=== PATIENT | male | born 1940 | race Caucasian/White ===

== ENCOUNTER → 2018-07-29 | Outpatient (CLI) | payer MEDICARE, BC ==
[2018-07-29 12:10] LABS: Anisocytosis Slight; HCT 26.6 % (39.0-53.0); HGB 7.8 gm/dL (13.0-17.5); Hypochromasia Marked; MCH 32.9 pg (25.0-35.0); MCHC 29.3 g/dL (31.0-37.0); MCV 112.1 fL (80.0-100.0); Macrocytosis Marked; Mean Platelet Volume 7.6; Platelet Count 172 k/uL (150-450); RBC 2.37 m/uL (4.30-5.90); RDW 16.9 % (11.5-15.5); WBC 4.4 k/uL (3.8-10.6)
[2018-07-29 12:18] LABS: Calcium 9.3 mg/dL (8.4-10.2); Potassium 4.9 mmol/L (3.5-5.1)
== END ==
LOC: LABWHC1 11:25
PROVIDERS: ATTEND Internal Medicine Interventional Cardiology
DX: I25.10 Atherosclerotic heart disease of native coronary artery without angina pectoris (principal); E11.9 Type 2 diabetes mellitus without complications; D64.9 Anemia, unspecified
CPT/HCPCS: 36415; 80048; 85027

== ENCOUNTER 2018-08-04 04:04 | Inpatient (IN) | payer BC, MEDICARE ==
[2018-08-04] MEDS ORDERED: SODIUM CHLORIDE 0.9% 500 ML IV STA (04:23)
--- NOTE | 2018-08-04 04:24 | ED ---
General Adult HPI - General Chief complaint: Urogenital Stated complaint: URINATING BLOOD Time Seen by Provider: 08/04/18 04:22 Source: patient Mode of arrival: ambulatory Limitations: no limitations - History of Present Illness Initial comments: Cameron is a 78-year-old male who presents the emergency department for evaluation of 3 hours of gross hematuria. Patient reports that one day in June he had a single day of passing blood clots, however that resolved the next day so he never sought any care. Patient does note that he has recently been diagnosed with anemia and was noted to have a hemoglobin of only 7.8. Patient reports he woke at 1:30 this morning to use the restroom and noted that he had gross hematuria with clots. This has persisted for approximately 3 hours which prompted his to bring him to the ER for evaluation. Patient reports that he is experiencing urinary frequency and some discomfort with urination. No hesitancy. No history of urinary tract infections in the past. He is circumcised. He is not experience any testicular pain or swelling. - Related Data Home Medications Medication Instructions Recorded Confirmed Aspirin 81 mg PO HS 01/25/15 08/04/18 Atenolol [Tenormin] 50 mg PO HS 01/25/15 08/04/18 Atorvastatin [Lipitor] 20 mg PO HS 01/25/15 08/04/18 Clopidogrel [Plavix] 75 mg PO DAILY 01/25/15 08/04/18 Furosemide [Lasix] 40 mg PO QAM 01/25/15 08/04/18 Isosorbide Mononitrate ER [Imdur] 60 mg PO QAM 01/25/15 08/04/18 Losartan [Cozaar] 50 mg PO QAM 01/25/15 08/04/18 Nitroglycerin Sl Tabs [Nitrostat] 0.4 mg SL Q5M PRN 01/25/15 08/04/18 Spironolactone [Aldactone] 50 mg PO QAM 01/25/15 08/04/18 metFORMIN HCL [Glucophage] 1,000 mg PO HS 01/25/15 08/04/18 Albuterol Inhaler [Ventolin Hfa 1 - 2 puff INHALATION RT-Q6H PRN 08/04/18 Inhaler] Budesonide [Pulmicort] 0.5 mg INHALATION RT-BID 08/04/18 08/04/18 Cholecalciferol (Vitamin D3) 2,000 unit PO HS 08/04/18 08/04/18 [Vitamin D3] Cyanocobalamin (Vitamin B-12) 1,000 mcg PO DAILY 08/04/18 08/04/18 [Vitamin B-12] Ferrous Sulfate [Feosol] 325 mg PO DAILY 08/04/18 08/04/18 Pioglitazone [Actos] 15 mg PO HS 08/04/18 08/04/18 Protegra 1 tab PO HS 08/04/18 08/04/18 Allergies Allergy/AdvReac Type Severity Reaction Status Date / Time No Known Allergies Allergy Verified 08/04/18 07:15 Review of Systems ROS Statement: Those systems with pertinent positive or pertinent negative responses have been documented in the HPI. ROS Other: All systems not noted in ROS Statement are negative. Past Medical History Past Medical History: Hypertension, Myocardial Infarction ([place]) History of Any Multi-Drug Resistant Organisms: None Reported Past Surgical History: Heart Catheterization With Stent, Hernia Repair, Orthopedic Surgery Additional Past Surgical History / Comment(s): Neck surgery, ENT surgery, Carpal tunnel both hands, Eye lids surgery, Past Psychological History: No Psychological Hx Reported Smoking Status: Former smoker Past Alcohol Use History: Occasional Past Drug Use History: None Reported General Exam - General Exam Comments Initial Comments: GENERAL: Patient is well-developed and well-nourished. Patient is nontoxic and well- hydrated and is in no distress. HENT: Normocephalic, Atraumatic. Neck is soft and supple. No significant lymphadenopathy is noted. Oropharynx is clear. Moist mucous membranes. Neck has full range of motion without eliciting any pain. EYES: The sclera were anicteric and conjunctiva were pale pink and moist. Extraocular movements were intact and pupils were equal round and reactive to light. Eyelids were unremarkable. PULMONARY: Unlabored respirations. Good breath sounds bilaterally. No audible rales rhonchi or wheezing was noted. CARDIOVASCULAR: There is a regular rate and rhythm without any murmurs gallops or rubs. ABDOMEN: Soft and nontender with normal bowel sounds. Well-healed surgical scars consistent with history of abdominal hernias No tenderness to palpation SKIN: Skin is pale, clear with no lesions or rashes and otherwise unremarkable. NEUROLOGIC: Patient is alert and oriented x3. Cranial nerves II through XII are grossly intact. Motor and sensory are also intact. Normal speech, volume and content. Symmetrical smile. MUSCULOSKELETAL: Normal extremities with adequate strength and full range of motion. No lower extremity swelling or edema. No calf tenderness. LYMPHATICS: No significant lymphadenopathy is noted PSYCHIATRIC: Normal psychiatric evaluation. Limitations: no limitations Limitations: no limitations Course Vital Signs 08/04/18 08/04/18 04:09 07:03 Temperature 97.8 F Pulse Rate 65 54 L Respiratory 18 16 Rate Blood Pressure 103/50 102/54 O2 Sat by Pulse 96 98 Oximetry Medical Decision Making - Medical Decision Making The patient was seen and evaluated, history was obtained from the patient and the His labs were reviewed, hemoglobin 7.8 on September 28 Labs including a type and screen were ordered Considering the patient's history of getting, development of gross hematuria there is concern for bladder pathology including bladder cancer. Urinalysis, urine culture and a CT of the abdomen will be ordered Labs reveal continuing worsening anemia with a hemoglobin of 7.2 During the patient's advanced age, cardiac history, anticoagulated status I do feel that he warrants admission to the hospital for serial hemoglobin testing and consideration of transfusion. Patient care was discussed with his primary care physician Dr. Bliss who accepts the patient to the observation unit for urinary tract infection with anemia. - Lab Data Result diagrams: 08/04/18 04:55 08/04/18 04:55 Lab Results 08/04/18 08/04/18 08/04/18 Range/Units 04:27 04:55 04:55 WBC 7.6 (3.8-10.6) k/uL RBC 2.05 L (4.30-5.90) m/uL Hgb 7.2 L (13.0-17.5) gm/dL Hct 23.8 L (39.0-53.0) % MCV 116.1 H (80.0-100.0) fL MCH 35.0 (25.0-35.0) pg MCHC 30.1 L (31.0-37.0) g/dL RDW 18.2 H (11.5-15.5) % Plt Count 198 (150-450) k/uL PT (9.0-12.0) sec INR (<1.2) APTT (22.0-30.0) sec Sodium 136 L (137-145) mmol/L Potassium 5.0 (3.5-5.1) mmol/L Chloride 103 (98-107) mmol/L Carbon Dioxide 22 (22-30) mmol/L Anion Gap 11 mmol/L BUN 33 H (9-20) mg/dL Creatinine 1.58 H (0.66-1.25) mg/dL Est GFR (CKD-EPI)AfAm 48 (>60 ml/min/1.73 sqM) Est GFR (CKD-EPI)NonAf 42 (>60 ml/min/1.73 sqM) Glucose 107 H (74-99) mg/dL Calcium 8.9 (8.4-10.2) mg/dL Total Bilirubin 0.9 (0.2-1.3) mg/dL AST 25 (17-59) U/L ALT 26 (21-72) U/L Alkaline Phosphatase 57 (38-126) U/L Troponin I (0.000-0.034) ng/mL Total Protein 5.9 L (6.3-8.2) g/dL Albumin 3.7 (3.5-5.0) g/dL Urine Color Dark Red Urine Appearance Turbid (Clear) Urine pH (5.0-8.0) Ur Specific [place] Not Reportable Urine Protein (Negative) Urine Glucose (UA) (Negative) Urine Ketones (Negative) Urine Blood (Negative) Urine Nitrite (Negative) Urine Bilirubin (Negative) Urine Urobilinogen (<2.0) mg/dL Ur Leukocyte Esterase (Negative) Urine RBC >182 H (0-5) /hpf Urine WBC >182 H (0-5) /hpf Ur Squamous Epith Cells 5 H (0-4) /hpf Urine Bacteria Few H (None) /hpf Hyaline Casts 75 H (0-2) /lpf Blood Type Blood Type Recheck Antibody Screen Spec Expiration Date 08/04/18 08/04/18 08/04/18 Range/Units 04:55 04:55 04:55 WBC (3.8-10.6) k/uL RBC (4.30-5.90) m/uL Hgb (13.0-17.5) gm/dL Hct (39.0-53.0) % MCV (80.0-100.0) fL MCH (25.0-35.0) pg MCHC (31.0-37.0) g/dL RDW (11.5-15.5) % Plt Count (150-450) k/uL PT 11.5 (9.0-12.0) sec INR 1.2 H (<1.2) APTT 23.6 (22.0-30.0) sec Sodium (137-145) mmol/L Potassium (3.5-5.1) mmol/L Chloride (98-107) mmol/L Carbon Dioxide (22-30) mmol/L Anion Gap mmol/L BUN (9-20) mg/dL Creatinine (0.66-1.25) mg/dL Est GFR (CKD-EPI)AfAm (>60 ml/min/1.73 sqM) Est GFR (CKD-EPI)NonAf (>60 ml/min/1.73 sqM) Glucose (74-99) mg/dL Calcium (8.4-10.2) mg/dL Total Bilirubin (0.2-1.3) mg/dL AST (17-59) U/L ALT (21-72) U/L Alkaline Phosphatase (38-126) U/L Troponin I 0.016 (0.000-0.034) ng/mL Total Protein (6.3-8.2) g/dL Albumin (3.5-5.0) g/dL Urine Color Urine Appearance (Clear) Urine pH (5.0-8.0) Ur Specific [place] Urine Protein (Negative) Urine Glucose (UA) (Negative) Urine Ketones (Negative) Urine Blood (Negative) Urine Nitrite (Negative) Urine Bilirubin (Negative) Urine Urobilinogen (<2.0) mg/dL Ur Leukocyte Esterase (Negative) Urine RBC (0-5) /hpf Urine WBC (0-5) /hpf Ur Squamous Epith Cells (0-4) /hpf Urine Bacteria (None) /hpf Hyaline Casts (0-2) /lpf Blood Type A Positive Blood Type Recheck CABO Indicated Antibody Screen NEGATIVE Spec Expiration Date 08/07/2018 - 2968 Disposition Clinical Impression: UTI (urinary tract infection), Hematuria, Anemia Disposition: ADMITTED IP TO THIS [facility] Referrals: Jarad Bliss MD [Primary Care Provider] - 1-2 days
--- NOTE | 2018-08-04 05:23 | XR ---
EXAMINATION TYPE: XR KUB portable DATE OF EXAM: 08/04/2018 COMPARISON: NONE HISTORY: Abdominal pain TECHNIQUE: 2 views FINDINGS: There is no sign of intestinal obstruction or pneumoperitoneum. Fecal pattern is normal. Th ere are no pathologic calcifications over the kidneys. There is no evidence of a mass. IMPRESSION: Nonacute abdomen.
[2018-08-04 05:47] LABS: INR 1.2 (<1.2); Partial Thromboplastin Time 23.6 sec (22.0-30.0); Prothrombin Time 11.5 sec (9.0-12.0)
[2018-08-04 05:47] LABS: Appearance,Urine Turbid (Clear); Bacteria,Urine Few /hpf; Hyaline Casts,Urine 75 /lpf (0-2); Squamous Epithelial Cell,Urine 5 /hpf (0-4)
[2018-08-04 05:48] LABS: Albumin 3.7 g/dL (3.5-5.0); Calcium 8.9 mg/dL (8.4-10.2); Total Bilirubin 0.9 mg/dL (0.2-1.3); Total Protein 5.9 g/dL (6.3-8.2)
[2018-08-04] MEDS ORDERED: SODIUM CHLORIDE 0.9% 1,000 ML IV ONE (05:52)
[2018-08-04 05:53] LABS: Color,Urine Dark Red
[2018-08-04 05:54] LABS: RBC,Urine >182 /hpf (0-5); WBC,Urine >182 /hpf (0-5)
[2018-08-04 06:00] LABS: Anisocytosis Slight; HCT 23.8 % (39.0-53.0); HGB 7.2 gm/dL (13.0-17.5); Hypochromasia Marked; MCHC 30.1 g/dL (31.0-37.0); MCV 116.1 fL (80.0-100.0); Macrocytosis Marked; Mean Platelet Volume 7.4; Platelet Count 198 k/uL (150-450); RBC 2.05 m/uL (4.30-5.90); RDW 18.2 % (11.5-15.5); WBC 7.6 k/uL (3.8-10.6)
--- NOTE | 2018-08-04 06:21 | CT ---
EXAMINATION TYPE: CT abdomen pelvis w con DATE OF EXAM: 08/04/2018 COMPARISON: None HISTORY: No prior. pt. c/o hematuria, with burning and frequent urgency CT DLP: 2505.90 mGycm Automated exposure control for dose reduction was used. TECHNIQUE: Helical acquisition of images was performed from the lung bases through the pelvis. CONTRAST: Performed without Oral Contrast and with IV Contrast, patient injected with 80 mL of Isovue 300. FINDINGS: There are small pleural effusions. There is patchy infiltrate and atelectasis at the right posterior lung base. There is minimal calcified pleural plaque at the right diaphragm. Heart is enlarged. There is no pericardial effusion. Liver shows no focal defect. Gallbladder appears normal. Spleen appears normal. There is no evidence of pancreatic mass. The bile ducts are not dilated. There is no adrenal mass. Kidneys show satisfactory contrast opacification. There is no hydronephrosi s. Ureters are not dilated. There is no retroperitoneal adenopathy. Abdominal aorta is atheromatous. There is no mesenteric adenopathy. There is subcutaneous edema around the abdomen. Bladder distends s moothly. Bladder wall appears uniformly mildly thickened. There is prosthetic calcification. There is some fat stranding and fluid in the paracolic gutters. I see no intestinal wall thickening. There ar e numerous sigmoid diverticula. There is no sign of diverticulitis. There is no sign of bowel obstruc tion. Appendix is not seen. There is no sign of appendicitis. There is no evidence of free air. There is small ventral hernia that contains omental fat. There is small umbilical hernia that contains fat . The lumbar spine is intact. I see no bony destructive process. There is no compression fracture. Ab dominal aorta is atheromatous. There is hypertrophic spurring at the hip joints. There are subchondra l cystic changes in the acetabula. IMPRESSION: BILATERAL MILD PLEURAL EFFUSIONS AND LARGER ON THE RIGHT SIDE. RIGHT SIDE CALCIFIED PLEURAL PLAQUE. M ILD INFILTRATE IN THE RIGHT LOWER LOBE. CARDIOMEGALY. NO EVIDENCE OF RENAL STONE OR OBSTRUCTION. SUBCUTANEOUS EDEMA AROUND THE ABDOMEN OF UNCERTAIN ORIGIN AND SIGNIFICANCE. MILD URINARY BLADDER WALL THICKENING COULD RELATE TO NONSPECIFIC CYSTITIS. SIGMOID DIVERTICULOSIS WITHOUT DIVERTICULITIS. MILD FLUID IN THE PARACOLIC GUTTER REGION OF UNCERTAIN SIGNIFICANCE.
[2018-08-04] MEDS ORDERED: NALOXONE 0.4 MG/ML 1 ML VIAL IV PRN (07:04)
[2018-08-04 07:57] LABS: Monocytes # (M) 0.61 k/uL (0-1.0); Neutrophils # (M) 6.69 k/uL (1.3-7.7); Neutrophils % (M) 88 %; Nucleated Red Blood Cells 0 /100 WBC (0-0); Total Cells Counted 100
[2018-08-04 07:58] LABS: Polychromasia Present
[2018-08-04 07:59] LABS: Poikilocytosis (M) Present
[2018-08-04 12:23] LABS: Glucose,Whole Blood 119 mg/dL (75-99)
[2018-08-04 12:55] LABS: Anisocytosis Slight; HCT 23.9 % (39.0-53.0); Hypochromasia Marked; MCH 34.7 pg (25.0-35.0); MCHC 29.4 g/dL (31.0-37.0); MCV 117.8 fL (80.0-100.0); Macrocytosis Marked; Mean Platelet Volume 7.9; Platelet Count 173 k/uL (150-450); RBC 2.03 m/uL (4.30-5.90); WBC 5.4 k/uL (3.8-10.6)
[2018-08-04 13:46] LABS: Lymphocytes # (M) 0.65 k/uL (1.0-4.8); Monocytes # (M) 0.43 k/uL (0-1.0); Neutrophils # (M) 4.32 k/uL (1.3-7.7); Neutrophils % (M) 80 %; Nucleated Red Blood Cells 0 /100 WBC (0-0); Total Cells Counted 100
[2018-08-04 13:49] LABS: Poikilocytosis (M) Present; Polychromasia Present
[2018-08-04] MEDS ORDERED: NITROGLYCERIN SL TABS 0.4 MG TAB SUBLINGUAL PRN (14:40)
--- NOTE | 2018-08-04 15:33 | XR ---
EXAMINATION TYPE: XR chest 2V DATE OF EXAM: 08/04/2018 COMPARISON: Prior chest x-ray 01/26/2014 HISTORY: Shortness of breath and pleural effusion TECHNIQUE: Frontal and lateral views of the chest are obtained. FINDINGS: Patient is post median sternotomy. Heart is enlarged. There is blunting the right costophr enic angle greater than left. Interstitium appears somewhat prominently although the exam is limited technically. No evident airspace disease or pneumothorax. Pulmonary vascularity and awa within ernestine l limits. There is increased AP diameter chest. IMPRESSION: Correlate to exclude pulmonary venous hypertension and interstitial edema. There may be small effusion.
[2018-08-04 17:19] LABS: Glucose,Whole Blood 139 mg/dL (75-99)
[2018-08-04] MEDS: INSULIN ASPART 100 UNIT/ML 1 ML 10 ML VIAL SQ SCH (17:21)
--- NOTE | 2018-08-04 17:32 | HP ---
HISTORY AND PHYSICAL DATE OF SERVICE: 08/04/18. He is FULL CODE status. He is a 78-year-old white male, . The patient presented to the emergency room. The patient is a patient of Dr. Bliss and he is out of town and he has asked me to care for the patient until the patient disposition. The patient presented to the emergency room and he presented to Dr. Winsome Peters with the complaint of and 2-3 hour gross hematuria in the urine. This is his 2nd episode and he passing blood with complete blood with the blood clot and it happened all of sudden. HISTORY OF PRESENT ILLNESS: A 78 years old white male, currently presented to the emergency room with hematuria and with the column blood and blood clots. This is his 2nd time. The first time was in June of this year. However, it resolved right away and this time his bleeding did not resolve. He has associated anemia and the anemia is admitted was initially 7.3 and now is 7 and he had also history of evaluation with Gastroenterology last year with colonoscopy and at that time they did not find anything. The bleeding which is continuous has been also not happening every day. This is only onset of 1:30, woke up to urinate and found that blood urinating blood continued for 2-3 hours. Then at that time his got worried and brought him to the emergency room. No history of urinary tract infection. He is circumcised and no history of testicular pain. However, patient had history of taking Plavix for many years and never happened any problem with the Plavix as he has a coronary artery bypass graft and he takes an aspirin with it, which is acute bleeding, we stopped and also anemia, which is down to 7. Stopped the aspirin and the Plavix temporary until we obtain consultation with the Urology and Gastroenterology as well as Hematology/Oncology. PAST MEDICAL HISTORY: The patient past medical history: He is a diabetic and he has macro cytosis and hypochromasia and he has normal vitamin B12. Actually I able to get to the lab which Dr. Bliss did order this lab as an outpatient and the date of these labs received on August 03, 2018 and was done at [facility] and the patient had a protein of 6.1, and he has vitamin B12 1739. He has iron of 75, and total iron binding capacity is 505 and transferrin saturation 14.9, serum ferritin 34.01. His platelet count was 191 at that date with white count 4.8. His RBCs 2.21 and and is low. His hemoglobin was 7.4 and hematocrit 26.7 with a MCV 118.4, the MCH 33.6 and MCHC 28.4, and he had the RDW 18.2. His retic count was 7.1 which is high and indicating there is some active bleeding somewhere in GI or urinary however he passed in the urine, which is mainly his urinary tract and for that purpose, we consulted Dr. Noble for evaluation and treatment. His hemoglobin at that time, 7.4. However, the patient when he came to the hospital and had laboratory and that was found to be 7.2 and repeat at mid day was 7. The patient did not transfuse yet, but we will be waiting for tomorrow and if he is still dropping, we will transfuse him. Meanwhile, we will be consulting the Hematology/Oncology as well as the Gastroenterology as well as Urology. His potassium was a little bit on the high side with the use of the Aldactone and will be adjusting. He has also found to have a BUN of 33, creatinine 1.58 with the underlying chronic kidney disease stage 3 with the estimated glomerular filtration rate for non- is 42, and he had also the diabetes and he has a PT 11.5 and INR 1.2 and PTT 23.6. The patient because of the bleeding, we could not start him on DVT prophylaxis, but we will be starting him on SCD. His sodium 136 and potassium is 5 as mentioned and we adjusted the Aldactone to 12.5 mg and also with the underlying low blood pressure for him and he has history of hypertension. We are currently adjusting the Cozaar as well. His calcium is normal 8.9, total bilirubin 0.9, AST 25, ALT 26, and alkaline phosphatase 57, troponin 1, 0.016, total protein 5.9, and albumin 3.7. As he had urine in the ER, they found could not make any result because of the just column of blood and his RBCs was more than 182 and white count was 182 and with the underlying hyaline casts. PAST MEDICAL HISTORY: History of anemia and prior to that he has been examined and worked up by Dr. Bliss, but this event of hematuria was new, happened before in June and this is the second time only. FAMILY HISTORY: His family history, he had boys, and the sons are not around and they are grown up in their own life. He is and his with him. He had an echocardiogram in the past by Dr. Luz Elena Olsen and at that time, he had left ventricle was dilated mildly and moderately decreased systolic function with ejection fraction was 41 and with the underlying hypertensive with eccentric hypertrophy and moderate concentric hypertrophy and the left ventricle was hypokinetic and he had a grade 1 diastolic dysfunction. With the conclusion this is read by Dr. Morejon as dated November 25, 2017 and with the underlying mild dilated left ventricle with moderately decreased function and grade 1 diastolic dysfunction and moderate concentric hypertrophy and he was also stated here that he had mild mitral regurgitation, mild tricuspid regurgitation and no pulmonary hypertension and the ejection fraction was slightly impaired in the inferior wall, was 41 ejection fraction. This according to the echocardiogram done at the [facility] and was read by Dr. Morejon. REVIEW OF SYMPTOMS: On the continuation of the review of systems, the patient neuropsychiatry he was fine. No headache. He had dizziness intermittently with the anemia and they could not find the source except urine that has column of blood. Dizziness associated with the anemia. Cardiovascular: He had history of seeing Dr. Tono Olsen in November and he had an echo at that time and with the current treatment. He had shortness of breath with the Pulmonary as well and he has COPD with a history of smoking. GI: He had history of having iron and as they supplemented him with iron as well as the stool is black and he does not know if it is from his iron or if it is from other sources as bleeding murcia. Musculoskeletal: He is able to ambulate and he had no history of strokes in the past. PHYSICAL EXAM: Patient is conscious, alert, oriented. He is pale and he feels dizziness and his vital signs indicating that blood pressure on admission was 103/50 and 102/54 and the last one 112/57. He is 97 on room air and his temperature was 96.7, and he has a heart rate of 75. Head was normocephalic, atraumatic. Pupil was equal, reactive and he is going for eye examination in the future. Oropharynx, he had natural teeth lower and partial upper and uvula midline. However, uvula has been chopped with a history of obstructive sleep apnea and he uses CPAP. The neck was supple. No JVD. No thyromegaly. No lymphadenopathy. Trachea midline. The chest was clear to auscultation and percussion with increased anteroposterior diameter with history of COPD. The heart PMI in the 5th intercostal space outside the midclavicular line with normal S1, S2. No evidence of gallop, however, soft murmur left sternal border. ABDOMEN: Obese, protuberant. He has lower abdomen soft tissue edema and he had an umbilical hernia which is not constricted or obstructed but he had a protuberant of the abdomen. No palpable masses was indicated. He had no suprapubic tenderness and no flank tenderness. He has intertrigo, the skin has effect of skin rash from tinea versus yeast because of the diabetes which again in his groin bilaterally present and will be treated with the nystatin powder. The extremity: He had a venous stasis associated with chronic edema of the lower extremities as well as anterior abdominal wall soft tissue thickness. Neurologically, he is stable and no evidence of stroke. He has no lateralizing sign. On the CT scan of the abdomen and pelvis was done in the emergency room was indicating there is the small pleural effusion. Patchy infiltrate and atelectasis in the right posterior lung base and there is minimal calcified pleural plaque in the right diaphragm and the heart is enlarged and no pericardial effusion and the liver showed no focal defect and gallbladder appeared normal. Spleen normal and no evidence of pancreatic mass or dilated bile duct. No adrenal mass and the kidney was satisfactory and no hydronephrosis. He has, however, the subcutaneous edema around the abdomen and the bladder distended but it is mostly and there is with the conclusion bilateral mild pleural effusion and larger on the right side and he had a calcification and pleural plaque and mild infiltrate in the right lower lobe with the cardiomegaly. No evidence of renal stone or obstruction and there is presence of subcutaneous edema around the abdomen and of uncertain etiology and significance of mild urinary bladder wall thickening. Thickening could be correlate with the nonspecific cystitis and he had sigmoid diverticulosis without diverticulitis and he had mild fluid in the pericolic gutter region of uncertain significance. He had also a KUB x-ray and a KUB was no signs of intestinal obstruction or pneumoperitoneum and the fecal pattern was normal and no pathologic calcification in the kidney. No evidence of mass. ASSESSMENT: With the reviewing of his medication and with the assessment at this time: 1. Underlying congestive heart failure, diastolic in nature and systolic chronic could be present added to the number one is the hematuria with the gross blood present and the etiology is unclear. 2. Underlying anticoagulation for the bypass graft which he it 20 years ago and by Dr. Sarkar, three vessel bypass. 3. Underlying impaired ejection fraction with the chronic congestive heart failure. 4. Anemia with the underlying etiology unclear is it only was observed hematuria or hematuria plus the gastrointestinal bleeding and with the underlying macrocytosis with the anemia macrocytic and hypochromic with normal vitamin B12 level. RECOMMENDATION AND PLAN: 1. We are going to obtain a chest x-ray to clarify the issue of the lung of atelectasis and pleural effusion. 2. We are consulting Dr. Noble, the urology for evaluation and treatment of hematuria. 3. Consulting Dr. Alba, Gastroenterology for evaluation and treatment of the gastrointestinal. 4. Consultation with Dr. Knutson he is Hematology/Oncology with the ruling out with anemia dropped to 7 and underlying myelodysplastic syndrome with the dropping of the hemoglobin was consideration until we find the reason for cause. Patient is pale and fatigued and tired. 5. We will obtained the echo from Cardiology office. 6. We will be also obtaining the proBNP as well. MMODL / IJN: [id number] /
[2018-08-04] MEDS: ALBUTEROL NEBULIZED 2.5 MG/3 ML INHALATION PRN (18:58)
[2018-08-04] MEDS: BUDESONIDE 0.5 MG/2 ML NEBU INHALATION SCH (18:58)
[2018-08-04] MEDS ORDERED: metFORMIN 500 MG TAB PO SCH (21:00)
[2018-08-04 21:06] LABS: Glucose,Whole Blood 146 mg/dL (75-99)
[2018-08-04] MEDS: ATORVASTATIN 20 MG TAB PO SCH (21:09)
[2018-08-04] MEDS: CHOLECALCIFEROL 1,000 UNIT TAB PO SCH (21:09)
[2018-08-04 22:02] LABS: Anisocytosis Slight; HCT 23.1 % (39.0-53.0); Hypochromasia Marked; MCH 35.1 pg (25.0-35.0); MCHC 30.2 g/dL (31.0-37.0); MCV 116.1 fL (80.0-100.0); Macrocytosis Marked; Mean Platelet Volume 7.4; Platelet Count 186 k/uL (150-450); RBC 1.99 m/uL (4.30-5.90); RDW 18.2 % (11.5-15.5); WBC 6.3 k/uL (3.8-10.6)
[2018-08-04] MEDS: ATENOLOL 50 MG TAB PO SCH (22:32)
[2018-08-04 22:51] LABS: Eosinophils # (M) 0.06 k/uL (0-0.7); Lymphocytes # (M) 0.44 k/uL (1.0-4.8); Neutrophils # (M) 5.29 k/uL (1.3-7.7); Neutrophils % (M) 84 %; Nucleated Red Blood Cells 0 /100 WBC (0-0); Total Cells Counted 100
[2018-08-04 22:52] LABS: Anisocytosis (M) Present; Polychromasia Present; Tear Drop Cells Present
[2018-08-05 07:16] LABS: Glucose,Whole Blood 143 mg/dL (75-99)
[2018-08-05] MEDS: BUDESONIDE 0.5 MG/2 ML NEBU INHALATION SCH ×2 (07:17→18:59)
[2018-08-05] MEDS: ALBUTEROL NEBULIZED 2.5 MG/3 ML INHALATION PRN ×2 (07:17→18:59)
[2018-08-05] MEDS: INSULIN ASPART 100 UNIT/ML 1 ML 10 ML VIAL SQ SCH ×3 (07:40→17:49)
--- NOTE | 2018-08-05 07:41 | P.GSCN ---
History of Present Illness Consult date: 08/05/18 History of present illness: The patient is a 78-year-old gentleman who was admitted to the hospital with gross hematuria and anemia. The day prior to admission he had a sudden episode of gross hematuria with clots. It persisted for several hours and eventually disappeared. Did have some frequency and urgency associated with this. There is no fever or chills. He came in the emergency room where a computed tomography scan was obtained that was normal urologically. The patient did have an episode of gross hematuria month ago. A urine culture is pending. His white count was normal. His hemoglobin was low at 7 but stable. The patient has no history of stones. He was a smoker but quit some 20 years ago. He is on Plavix and aspirin. 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 Taylor, asbestos exposure, JAMSHID with CPAP, vertigo, cervical pain, bilateral arm and hand numbness, NIDDM type II, neuropathy bilateral feet, occasional bilateral lower extremity edema, pt states he has bilateral calf soreness/pain with activity or touching. Last Myocardial Infarction Date:: 1991 History of Any Multi-Drug Resistant Organisms: None Reported Past Surgical History: Adenoidectomy, Coronary Bypass/CABG, Heart Catheterization, Heart Catheterization With Stent, Hernia Repair, Orthopedic Surgery, Tonsillectomy Additional Past Surgical History / Comment(s): 1991 CABG-3 vessel, 2005 and 2008 PCI/stents, incisional ventral hernia repair, sinus surgery, bilateral blepharoplasties, cervical disc 4 and 5 surgery, bilateral rotator cuff repairs , bilateral carpal tunnel releases/wrist, L ankle fracture with surgery-pt states no hardware, colonoscopies-last done 09/08/17, pain clinic procedures with recent cervical injections. Past Anesthesia/Blood Transfusion Reactions: No Reported Reaction Additional Past Anesthesia/Blood Transfusion Reaction / Comm: Pt has never received blood. Date of Last Stent Placement:: 2008 Smoking Status: Former smoker - Past Family History Father Family Medical History: Myocardial Infarction ([place]) Additional Family Medical History / Comment(s): Father of a [place] at the age of 63 yrs. Mother Family Medical History: Myocardial Infarction ([place]) Additional Family Medical History / Comment(s): Mother of a [place] at the age of 67yrs. Brother(s) Additional Family Medical History / Comment(s): Pt has 20 siblings. His twin brother from heart condition. He also had anemia. Medications and Allergies Home Medications Medication Instructions Recorded Confirmed Type Aspirin 81 mg PO HS 01/25/15 08/04/18 History Atenolol [Tenormin] 50 mg PO HS 01/25/15 08/04/18 History Atorvastatin [Lipitor] 20 mg PO HS 01/25/15 08/04/18 History Clopidogrel [Plavix] 75 mg PO DAILY 01/25/15 08/04/18 History Furosemide [Lasix] 40 mg PO QAM 01/25/15 08/04/18 History Isosorbide Mononitrate ER [Imdur] 60 mg PO QAM 01/25/15 08/04/18 History Losartan [Cozaar] 50 mg PO QAM 01/25/15 08/04/18 History Nitroglycerin Sl Tabs [Nitrostat] 0.4 mg SL Q5M PRN 01/25/15 08/04/18 History Spironolactone [Aldactone] 50 mg PO QAM 01/25/15 08/04/18 History metFORMIN HCL [Glucophage] 1,000 mg PO HS 01/25/15 08/04/18 History Albuterol Inhaler [Ventolin Hfa 1 - 2 puff INHALATION RT-Q6H PRN 08/04/18 History Inhaler] Budesonide [Pulmicort] 0.5 mg INHALATION RT-BID 08/04/18 08/04/18 History Cholecalciferol (Vitamin D3) 2,000 unit PO HS 08/04/18 08/04/18 History [Vitamin D3] Cyanocobalamin (Vitamin B-12) 1,000 mcg PO DAILY 08/04/18 08/04/18 History [Vitamin B-12] Ferrous Sulfate [Feosol] 325 mg PO DAILY 08/04/18 08/04/18 History Pioglitazone [Actos] 15 mg PO HS 08/04/18 08/04/18 History Protegra 1 tab PO HS 08/04/18 08/04/18 History Allergies Allergy/AdvReac Type Severity Reaction Status Date / Time No Known Allergies Allergy Verified 08/04/18 07:15 Surgical - Exam Vital Signs Temp Pulse Resp BP Pulse Ox 97.8 F 65 18 103/50 96 08/04/18 04:09 08/04/18 04:09 08/04/18 04:09 08/04/18 04:09 08/04/18 04:09 - General well developed, well nourished, obese - Eyes PERRL - ENT no hearing loss - Neck trachea midline - Respiratory normal expansion, normal respiratory effort - Cardiovascular Rhythm: regular - Abdomen Abdomen: soft, non tender - Genitourinary Prostate is small and benign. Testes epididymis scrotum and penis are all normal. normal penis with no external lesions - Rectum Rectum: normal sphincter tone - Integumentary no rash, no growths - Neurologic normal coordination, normal sensation - Musculoskeletal normal posture - Psychiatric oriented to time, oriented to person, oriented to place, speech is normal, memory intact Results - Labs 08/04/18 21:32 08/04/18 04:55 Abnormal Lab Results - Last 24 Hours (Table) 08/04/18 08/04/18 08/04/18 Range/Units 04:55 12:06 12:14 RBC 2.03 L (4.30-5.90) m/uL Hgb 7.0 L (13.0-17.5) gm/dL Hct 23.9 L (39.0-53.0) % MCV 117.8 H (80.0-100.0) fL MCH (25.0-35.0) pg MCHC 29.4 L (31.0-37.0) g/dL RDW 18.0 H (11.5-15.5) % Lymphocytes # (Manual) 0.30 L 0.65 L (1.0-4.8) k/uL POC Glucose (mg/dL) 119 H (75-99) mg/dL 08/04/18 08/04/18 08/04/18 Range/Units 17:06 21:05 21:32 RBC 1.99 L (4.30-5.90) m/uL Hgb 7.0 L (13.0-17.5) gm/dL Hct 23.1 L (39.0-53.0) % MCV 116.1 H (80.0-100.0) fL MCH 35.1 H (25.0-35.0) pg MCHC 30.2 L (31.0-37.0) g/dL RDW 18.2 H (11.5-15.5) % Lymphocytes # (Manual) 0.44 L (1.0-4.8) k/uL POC Glucose (mg/dL) 139 H 146 H (75-99) mg/dL 08/05/18 Range/Units 06:53 RBC (4.30-5.90) m/uL Hgb (13.0-17.5) gm/dL Hct (39.0-53.0) % MCV (80.0-100.0) fL MCH (25.0-35.0) pg MCHC (31.0-37.0) g/dL RDW (11.5-15.5) % Lymphocytes # (Manual) (1.0-4.8) k/uL POC Glucose (mg/dL) 143 H (75-99) mg/dL Microbiology - Last 24 Hours (Table) 08/04/18 04:27 Urine Culture - Preliminary Urine,Voided - Imaging CT scan - abdomen: report reviewed, image reviewed CT scan - pelvis: report reviewed, image reviewed Assessment and Plan Assessment: Impression: Gross hematuria with indeterminate etiology. Anemia, multifactorial. Multiple medical illnesses. Recommendations: The urine was quite inflamed. Cultures are pending. Hemorrhagic cystitis is always a possibility although it does not explain the blood back in June. The patient will need cystoscopy as an outpatient in my office. Urologic standpoint since he urine is clear he can be discharged home at any time. If the culture is negative than antibiotics are necessary if it is positive then appropriate antibiotics are necessary. He should be seen in my office in a week or 2. Short episodes of bleeding do not explain hemoglobin of 7.
[2018-08-05] MEDS: FUROSEMIDE 40 MG TAB PO SCH (07:59)
[2018-08-05] MEDS: CYANOCOBALAMIN 500 MCG TAB PO SCH (08:00)
[2018-08-05] MEDS: LOSARTAN 25 MG TAB PO SCH (08:00)
[2018-08-05] MEDS: SPIRONOLACTONE 25 MG TAB PO SCH (08:00)
[2018-08-05] MEDS ORDERED: SPIRONOLACTONE 25 MG TAB PO SCH (09:00)
[2018-08-05] MEDS ORDERED: LOSARTAN 50 MG TAB PO SCH (09:00)
[2018-08-05 09:06] LABS: Anisocytosis Slight; HCT 24.2 % (39.0-53.0); HGB 7.1 gm/dL (13.0-17.5); Hypochromasia Marked; MCH 34.6 pg (25.0-35.0); MCHC 29.4 g/dL (31.0-37.0); MCV 117.7 fL (80.0-100.0); Macrocytosis Marked; Mean Platelet Volume 7.6; Platelet Count 192 k/uL (150-450); RBC 2.05 m/uL (4.30-5.90); RDW 18.4 % (11.5-15.5); WBC 6.9 k/uL (3.8-10.6)
[2018-08-05 09:28] LABS: Reticulocyte % 11.1 % (0.5-2.0)
[2018-08-05] MEDS: ISOSORBIDE MONONITRATE ER 60 MG TAB.ER.24H PO SCH (09:42)
[2018-08-05 10:16] LABS: Myelocytes # (M) 0.07 k/uL (0); Myelocytes % 1 %; Nucleated Red Blood Cells 0 /100 WBC (0-0)
[2018-08-05 10:18] LABS: Eosinophils # (M) 0.07 k/uL (0-0.7); Lymphocytes # (M) 0.76 k/uL (1.0-4.8); Monocytes # (M) 0.28 k/uL (0-1.0); Neutrophils % (M) 84 %; Poikilocytosis (M) Present; Polychromasia Present; Total Cells Counted 200
--- NOTE | 2018-08-05 11:05 | P.CONS ---
History of Present Illness - Reason for Consult Consult date: 08/05/18 anemia Requesting physician: Jose Khan - Chief Complaint Blood and urine - History of Present Illness 78-year-old gentleman with a past medical history of CAD CABG maintained on aspirin Plavix, OR, hypertension, abdominal hernia repair presented to the emergency room with gross hematuria. Hematuria lasted for about 3 hours. He had a similar episode of hematuria month ago that lasted 1 day. Denies hematemesis hematochezia or melena. Reports his stools to be dark in appearance but takes oral iron. No history GI bleed or peptic ulcer disease. Admission hemoglobin 7.2. MCV 116. Platelet 198. Reticulocyte count 11.1. INR 1.2. BUN 33. Creatinine 1.5. Presently hemoglobin is 7.1. No blood transfusions. Previous hemoglobin on 07/29/2018 was 7.8. Endoscopic history: No history of EGD. Colonoscopy performed by Dr. Alba August 2017 at [facility]; patient reports a few polyps removed. Reports some suprapubic mild tenderness. Denies epigastric pain. No weight loss. No fever or chills. FOBT requested and pending. Patient is been evaluated by urology with plans for outpatient cystoscopy. Review of Systems Constitutional: Denies fever, chills, sweats, weight gain, or loss. HEENT: Negative for migraines, blurred vision or loss, earaches, drainage, tinnitus, oral mucosal lesions, dysphagia, or odynophagia. Cardiac: Negative for chest pain, arrhythmias, or palpitation. Respiratory: Negative for shortness of breath, hemoptysis, cough, or sputum production. Gastrointestinal: See HPI for pertinent findings. Genitourinary: Admitted with hematuria, deniesurgency, frequency, polyuria, dysuria, or penile discharge. Musculoskeletal: Negative for muscle aches, swelling, arthritis, and arthralgias. Neurologic: Negative for stroke or TIA. Endocrine: Negative for thyroid problems. Skin: Negative for rash or itching. 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 Taylor, asbestos exposure, JAMSHID with CPAP, vertigo, cervical pain, bilateral arm and hand numbness, NIDDM type II, neuropathy bilateral feet, occasional bilateral lower extremity edema, pt states he has bilateral calf soreness/pain with activity or touching. Last Myocardial Infarction Date:: 1991 History of Any Multi-Drug Resistant Organisms: None Reported Past Surgical History: Adenoidectomy, Coronary Bypass/CABG, Heart Catheterization, Heart Catheterization With Stent, Hernia Repair, Orthopedic Surgery, Tonsillectomy Additional Past Surgical History / Comment(s): 1991 CABG-3 vessel, 2005 and 2008 PCI/stents, incisional ventral hernia repair, sinus surgery, bilateral blepharoplasties, cervical disc 4 and 5 surgery, bilateral rotator cuff repairs , bilateral carpal tunnel releases/wrist, L ankle fracture with surgery-pt states no hardware, colonoscopies-last done 09/08/17, pain clinic procedures with recent cervical injections. Past Anesthesia/Blood Transfusion Reactions: No Reported Reaction Additional Past Anesthesia/Blood Transfusion Reaction / Comm: Pt has never received blood. Date of Last Stent Placement:: 2008 Smoking Status: Former smoker - Past Family History Father Family Medical History: Myocardial Infarction ([place]) Additional Family Medical History / Comment(s): Father of a [place] at the age of 63 yrs. Mother Family Medical History: Myocardial Infarction ([place]) Additional Family Medical History / Comment(s): Mother of a [place] at the age of 67yrs. Brother(s) Additional Family Medical History / Comment(s): Pt has 20 siblings. His twin brother from heart condition. He also had anemia. Medications and Allergies Home Medications Medication Instructions Recorded Confirmed Type Aspirin 81 mg PO HS 01/25/15 08/04/18 History Atenolol [Tenormin] 50 mg PO HS 01/25/15 08/04/18 History Atorvastatin [Lipitor] 20 mg PO HS 01/25/15 08/04/18 History Clopidogrel [Plavix] 75 mg PO DAILY 01/25/15 08/04/18 History Furosemide [Lasix] 40 mg PO QAM 01/25/15 08/04/18 History Isosorbide Mononitrate ER [Imdur] 60 mg PO QAM 01/25/15 08/04/18 History Losartan [Cozaar] 50 mg PO QAM 01/25/15 08/04/18 History Nitroglycerin Sl Tabs [Nitrostat] 0.4 mg SL Q5M PRN 01/25/15 08/04/18 History Spironolactone [Aldactone] 50 mg PO QAM 01/25/15 08/04/18 History metFORMIN HCL [Glucophage] 1,000 mg PO HS 01/25/15 08/04/18 History Albuterol Inhaler [Ventolin Hfa 1 - 2 puff INHALATION RT-Q6H PRN 08/04/18 History Inhaler] Budesonide [Pulmicort] 0.5 mg INHALATION RT-BID 08/04/18 08/04/18 History Cholecalciferol (Vitamin D3) 2,000 unit PO HS 08/04/18 08/04/18 History [Vitamin D3] Cyanocobalamin (Vitamin B-12) 1,000 mcg PO DAILY 08/04/18 08/04/18 History [Vitamin B-12] Ferrous Sulfate [Feosol] 325 mg PO DAILY 08/04/18 08/04/18 History Pioglitazone [Actos] 15 mg PO 08/04/18 08/04/18 History Protegra 1 tab PO 08/04/18 08/04/18 History Allergies Allergy/AdvReac Type Severity Reaction Status Date / Time No Known Allergies Allergy Verified 08/04/18 07:15 Physical Exam Vitals: Vital Signs Temp Pulse Pulse Resp BP Pulse Ox 08/05/18 09:10 83 116/65 08/05/18 09:00 84 116/65 08/05/18 07:29 66 08/05/18 07:17 65 08/05/18 06:32 98.9 F 63 18 126/55 98 08/04/18 22:26 99.1 F 78 18 95/42 95 08/04/18 21:12 72 93/63 08/04/18 19:14 70 08/04/18 18:59 70 08/04/18 15:17 96.8 F L 67 16 113/56 94 L Intake and Output 08/04/18 08/05/18 08/05/18 22:59 06:59 14:59 Intake Total 600 Output Total 850 Balance -250 Intake: Oral 600 Output: Urine 850 Other: Voiding Method Urinal # Voids 1 2 General appearance: The patient is alert, oriented, in no acute distress. HET: Head is normocephalic and atraumatic. Pupils are equal and reactive. Oropharynx is clear without lesions. Neck: Supple without lymphadenopathy. Trachea midline. Heart: S1 S2. Regular rate and rhythm. Lungs: No crackles or wheezes are heard. Abdomen: Soft, nontender, nondistended with bowel sounds. No peritoneal signs. No palpable organomegaly or masses. Extremities: Normal skin color and turgor. No cyanosis, rash, ulceration, clubbing, or edema. Radial and pedal pulses are 2/4 bilaterally. Neurological: No focal deficits. Strength and sensation are grossly intact. Results CBC & Chem 7: 08/07/18 08:02 08/07/18 08:02 Labs: Abnormal Lab Results - Last 24 Hours (Table) 08/04/18 08/04/18 08/04/18 Range/Units 12:06 12:14 17:06 RBC 2.03 L (4.30-5.90) m/uL Hgb 7.0 L (13.0-17.5) gm/dL Hct 23.9 L (39.0-53.0) % MCV 117.8 H (80.0-100.0) fL MCH (25.0-35.0) pg MCHC 29.4 L (31.0-37.0) g/dL RDW 18.0 H (11.5-15.5) % Lymphocytes # (Manual) 0.65 L (1.0-4.8) k/uL Retic Count (0.5-2.0) % POC Glucose (mg/dL) 119 H 139 H (75-99) mg/dL 08/04/18 08/04/18 08/05/18 Range/Units 21:05 21:32 06:53 RBC 1.99 L (4.30-5.90) m/uL Hgb 7.0 L (13.0-17.5) gm/dL Hct 23.1 L (39.0-53.0) % MCV 116.1 H (80.0-100.0) fL MCH 35.1 H (25.0-35.0) pg MCHC 30.2 L (31.0-37.0) g/dL RDW 18.2 H (11.5-15.5) % Lymphocytes # (Manual) 0.44 L (1.0-4.8) k/uL Retic Count (0.5-2.0) % POC Glucose (mg/dL) 146 H 143 H (75-99) mg/dL 08/05/18 08/05/18 Range/Units 08:33 08:33 RBC 2.05 L (4.30-5.90) m/uL Hgb 7.1 L (13.0-17.5) gm/dL Hct 24.2 L (39.0-53.0) % MCV 117.7 H (80.0-100.0) fL MCH (25.0-35.0) pg MCHC 29.4 L (31.0-37.0) g/dL RDW 18.4 H (11.5-15.5) % Lymphocytes # (Manual) (1.0-4.8) k/uL Retic Count 11.1 H (0.5-2.0) % POC Glucose (mg/dL) (75-99) mg/dL Microbiology - Last 24 Hours (Table) 08/04/18 07:01 Blood Culture - Preliminary Blood No Growth after 24 hours 08/04/18 04:27 Urine Culture - Preliminary Urine,Voided Assessment and Plan (1) Anemia Narrative/Plan: 78-year-old gentleman presents with acute hematuria second episode since June with symptomatic macrocytic anemia acute blood loss. Presently no clinical evidence to suggest an overt GI bleed. Denies hematemesis hematochezia or melena. Reports darker color bowel movements but is presently receiving oral iron. FOBT testing has been requested. Colonoscopy 1 year ago reported as a few polyps removed. No history of EGD. Upper GI small bowel blood loss is within the differential and is presently being evaluated. Hematuria has resolved. Current Visit: Yes Status: Acute Code(s): D64.9 - ANEMIA, UNSPECIFIED SNOMED Code(s): 443003121 (2) Hematuria Current Visit: Yes Status: Acute Code(s): R31.9 - HEMATURIA, UNSPECIFIED SNOMED Code(s): 80079966 Plan: Recommendations: 1. Presently no overt GI bleeding. Hemoglobin has remained stable without blood transfusion. Hematuria has resolved. UGI/small bowel source cannot be entirely excluded therefore recommend EGD evaluation prior to discharge; patient ate full breakfast will schedule tomorrow. Protonix 40 mg daily. NPO after midnight. 2. Hematology consultation. Iron indices folate B12 requested. Thank you for this kind referral and the opportunity to participate in the care of your patient. This consultation was discussed with Dr. Infante. The impression and plan of care have been directed as dictated.
[2018-08-05] MEDS ORDERED: PANTOPRAZOLE 40 MG TABLET PO SCH (11:15)
[2018-08-05 11:34] LABS: Glucose,Whole Blood 137 mg/dL (75-99)
--- NOTE | 2018-08-05 16:09 | PN ---
PROGRESS NOTE DATE OF SERVICE: 08/05/2018 DATA: NO CODE. Height 5 feet 9 inches, weight 115.666 kg, BSA 2.29 m2, BMI 37.7 kg. ALLERGIES: UNKNOWN. The patient was seen, evaluated, face to face, and I discussed with him the current findings as well as the plan of care. LABORATORY: White count 6.9, hemoglobin 7.1, improved from yesterday which was 7. His MCV shows macrocytosis. He had marked macrocytosis and hypochromasia. His blood sugar is stable with the use of insulin. He is on CBG with insulin to scale. His last chemistry 08/04, yesterday, showed underlying BUN of 33 and creatinine 1.58, which could be associated with the anemia as well as associated with chronic kidney disease, stage III, with the history of hematuria. His glomerular filtration rate for non- is 42. His calcium is 8.9. Liver enzymes were normal. Troponin was 0.016 on 08/04. Total protein 5.9 and albumin 3.7. Since admission he has no elevation of the white count. However, the reticulocyte was 11.1. He has macrocytosis and severe hypochromasia. We did consult Dr. Knutson of Hematology/Oncology; so far he has not seen the patient. However, we will be re-consulting him if he has no previous notification of the consult. We did the consult on 08/04 and we will be asking the nurse to notify him or notify his PA for the consult. The patient had a blood culture which was negative and also a urine culture that was negative. However, he is started on Rocephin. He had consultation with Dr. Salvador Becerra, the urologist, who stated in his impression that the patient had gross hematuria and his hemoglobin as low as 7, but stable. His note indicates that he had gross hematuria with intermediate etiology, anemia, multifactorial, and multiple medical illnesses. He stated the urine was quite inflamed and the culture was pending, but the culture is negative. He thought of hemorrhagic cystitis was a possibility, but it does not explain the previous blood episode in June, and he will need cystoscopy as outpatient in Dr. Becerra's office. From the urological standpoint, he said that his urine now is clearing, antibiotic as necessary, and office visit in a week or 2, and he stated that the short episodes of bleeding could not explain the hemoglobin of 7. We do not disagree, but this is full stream hematuria; could be something causing that and then it stopped with the treatment and IV, but there is definitely a reason for columns of blood and blood clots and even in his previous episode. Gastroenterology nurse practitioner Lianet Morrow saw the patient and she discussed the case with her attending, Dr. Darrell Infante, rcis. Because of the drop of the hemoglobin to that limit, there is definitely something else causing it, or not; we do not know. They will be taking him tomorrow to the endoscopy suite and doing EGD. Subsequently we were waiting for Dr. Knutson for evaluation as to whether he has myelodysplastic syndrome or further need for any further investigation prior to starting iron IV, and that is another issue we do not have clarification on yet. I will be ordering today iron studies to support whether we need infusion with iron to avoid hemoglobin RBCs infusion. However, we will wait for Dr. Knutson, Hematology/Oncology. PHYSICAL EXAMINATION: Today his vital signs are stable. He is ambulatory. His temperature is 98.4. His urine stream has returned to normal. His pulse rate is 70, respiratory rate 16 and blood pressure 113/70. Saturation 97% on room air. HEENT: The head was normocephalic, atraumatic. He is severely pale, sclerae and conjunctivae. Oropharyngeal mucosa pale. He is ashy in color. NECK: Supple. No JVD. CHEST: Clear to auscultation and percussion. HEART: Regular sinus rhythm. ABDOMEN: Soft, non-tender. Positive bowel sounds. EXTREMITIES: Edema of the lower extremities. He has been seen in the past by Dr. Tono Olsen and we will be consulting Cardiology; the previous visit was recent; to see why he has underlying edema. It is pitting edema. He is also diabetic and we adjusted the medication for now and his blood pressure is improving. He is still on atenolol and inhalation therapy for COPD and insulin to scale. Furosemide was given to him twice a day. He is on isosorbide mononitrate and losartan. We decreased the losartan, as his admission showed that his blood pressure was low. ASSESSMENT: 1. Underlying anemia; severe anemia with hemoglobin of 7, stable at this time. We will check again. Reticulocyte count is elevated to 7, indicating there is trickling somewhere, and he had a hematuria as well. 2. Hypertension. 3. Diabetes mellitus. 4. Chronic obstructive pulmonary disease. 5. Edema of the lower extremities. We will obtain the proBNP as well. JOHNNIE / CHEMO: [id number] /
[2018-08-05 17:09] LABS: Glucose,Whole Blood 153 mg/dL (75-99)
[2018-08-05 18:25] LABS: Iron Saturation 8.44 (15.00-50.00); Protein, Total 6.1 g/dL (6.2-8.2)
[2018-08-05] MEDS ORDERED: ONDANSETRON 4 MG/2 ML VIAL IVP PRN (19:59)
--- NOTE | 2018-08-05 20:47 | P.CONS ---
History of Present Illness - Reason for Consult Consult date: 08/05/18 hematuria. Macrocytic anemia - History of Present Illness The patient is a 78-year-old gentleman, with multiple but overall well-controlled medical problems. The patient came in to the emergency room as he was having gross bleeding in the urine, starting about 3-4 hours prior to presentation. He had had an episode about a month ago that had stopped spontaneously. The patient is on aspirin and Plavix for his cardiac health issues. On admission hemoglobin was noted to be in the 7 range where it has been stable. MCV was markedly elevated, at greater than 110. This raises the possibility that he has another etiology contributing to his anemia. Consult was therefore placed for further evaluation and recommendations CBC in 01/22 had shown a mild anemia with hemoglobin in the 12-13 range, with MCV high normal. The patient denied any prior history of blood problems. Hemoglobin is also 7.8, on 07/29/18, with elevated MCV. Review of Systems Constitutional: Reports fatigue Eyes: denies blurred vision, denies pain Ears: deny: decreased hearing, ear discharge, earache, tinnitus Ears, nose, mouth and throat: Denies headache, Denies sore throat Cardiovascular: Reports decreased exercise tolerance Respiratory: Denies cough Gastrointestinal: Denies abdominal pain, Denies diarrhea, Denies nausea, Denies vomiting Genitourinary: Reports hematuria Musculoskeletal: Denies myalgias Integumentary: Denies pruritus, Denies rash Neurological: Reports weakness Psychiatric: Denies anxiety, Denies depression Endocrine: Denies fatigue, Denies weight change Hematologic/Lymphatic: Reports as per HPI Past Medical History Past Medical History: Asthma, Coronary Artery Disease (CAD), Chest Pain / Angina , COPD, Diabetes Mellitus, Hyperlipidemia, Hypertension, Myocardial Infarction ( VT), Pneumonia, Sleep Apnea/CPAP/BIPAP Additional Past Medical History / Comment(s): Hematuria for 1 day in June 2018 , recently told he is anemic, 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 Taylor, asbestos exposure, JAMSHID with CPAP, vertigo, cervical pain, bilateral arm and hand numbness, NIDDM type II, neuropathy bilateral feet, occasional bilateral lower extremity edema, pt states he has bilateral calf soreness/pain with activity or touching. Last Myocardial Infarction Date:: 1991 History of Any Multi-Drug Resistant Organisms: None Reported Past Surgical History: Adenoidectomy, Coronary Bypass/CABG, Heart Catheterization, Heart Catheterization With Stent, Hernia Repair, Orthopedic Surgery, Tonsillectomy Additional Past Surgical History / Comment(s): 1991 CABG-3 vessel, 2005 and 2008 PCI/stents, incisional ventral hernia repair, sinus surgery, bilateral blepharoplasties, cervical disc 4 and 5 surgery, bilateral rotator cuff repairs , bilateral carpal tunnel releases/wrist, L ankle fracture with surgery-pt states no hardware, colonoscopies-last done 09/08/17, pain clinic procedures with recent cervical injections. Past Anesthesia/Blood Transfusion Reactions: No Reported Reaction Additional Past Anesthesia/Blood Transfusion Reaction / Comm: Pt has never received blood. Date of Last Stent Placement:: 2008 Smoking Status: Former smoker - Past Family History Father Family Medical History: Myocardial Infarction (VT) Additional Family Medical History / Comment(s): Father of a VT at the age of 63 yrs. Mother Family Medical History: Myocardial Infarction (VT) Additional Family Medical History / Comment(s): Mother of a VT at the age of 67yrs. Brother(s) Additional Family Medical History / Comment(s): Pt has 20 siblings. His twin brother from heart condition. He also had anemia. Medications and Allergies Home Medications Medication Instructions Recorded Confirmed Type Aspirin 81 mg PO HS 01/25/15 08/04/18 History Atenolol [Tenormin] 50 mg PO HS 01/25/15 08/04/18 History Atorvastatin [Lipitor] 20 mg PO HS 01/25/15 08/04/18 History Clopidogrel [Plavix] 75 mg PO DAILY 01/25/15 08/04/18 History Furosemide [Lasix] 40 mg PO QAM 01/25/15 08/04/18 History Isosorbide Mononitrate ER [Imdur] 60 mg PO QAM 01/25/15 08/04/18 History Losartan [Cozaar] 50 mg PO QAM 01/25/15 08/04/18 History Nitroglycerin Sl Tabs [Nitrostat] 0.4 mg SL Q5M PRN 01/25/15 08/04/18 History Spironolactone [Aldactone] 50 mg PO QAM 01/25/15 08/04/18 History metFORMIN HCL [Glucophage] 1,000 mg PO HS 01/25/15 08/04/18 History Albuterol Inhaler [Ventolin Hfa 1 - 2 puff INHALATION RT-Q6H PRN 08/04/18 History Inhaler] Budesonide [Pulmicort] 0.5 mg INHALATION RT-BID 08/04/18 08/04/18 History Cholecalciferol (Vitamin D3) 2,000 unit PO HS 08/04/18 08/04/18 History [Vitamin D3] Cyanocobalamin (Vitamin B-12) 1,000 mcg PO DAILY 08/04/18 08/04/18 History [Vitamin B-12] Ferrous Sulfate [Feosol] 325 mg PO DAILY 08/04/18 08/04/18 History Pioglitazone [Actos] 15 mg PO HS 08/04/18 08/04/18 History Protegra 1 tab PO HS 08/04/18 08/04/18 History Allergies Allergy/AdvReac Type Severity Reaction Status Date / Time No Known Allergies Allergy Verified 08/04/18 07:15 Physical Exam Vitals: Vital Signs Temp Pulse Pulse Resp BP BP Pulse Ox 08/05/18 13:37 98.4 F 70 16 113/70 97 08/05/18 09:10 83 116/65 08/05/18 09:00 84 116/65 08/05/18 07:29 66 08/05/18 07:17 65 08/05/18 06:32 98.9 F 63 18 126/55 98 08/04/18 22:26 99.1 F 78 18 95/42 95 08/04/18 21:12 72 93/63 08/04/18 19:14 70 08/04/18 18:59 70 Intake and Output 08/05/18 08/05/18 08/05/18 06:59 14:59 22:59 Intake Total 1200 Balance 1200 Intake: Oral 1200 Other: # Voids 2 3 # Bowel Movements 1 - Constitutional General appearance: no acute distress - EENT Eyes: EOMI, PERRLA ENT: hearing grossly normal, normal oropharynx - Neck Neck: no lymphadenopathy Thyroid: bilateral: normal size - Respiratory Respiratory: bilateral: CTA - Cardiovascular Rhythm: regular Heart sounds: normal: S1, S2 - Gastrointestinal General gastrointestinal: normal bowel sounds, soft - Integumentary Integumentary: normal - Neurologic Neurologic: CNII-XII intact - Musculoskeletal Musculoskeletal: generalized weakness, strength equal bilaterally - Psychiatric Psychiatric: A&O x's 3, appropriate affect Results CBC & Chem 7: 08/05/18 08:33 08/04/18 04:55 Labs: Abnormal Lab Results - Last 24 Hours (Table) 08/04/18 08/04/18 08/05/18 Range/Units 21:05 21:32 06:53 RBC 1.99 L (4.30-5.90) m/uL Hgb 7.0 L (13.0-17.5) gm/dL Hct 23.1 L (39.0-53.0) % MCV 116.1 H (80.0-100.0) fL MCH 35.1 H (25.0-35.0) pg MCHC 30.2 L (31.0-37.0) g/dL RDW 18.2 H (11.5-15.5) % Lymphocytes # (Manual) 0.44 L (1.0-4.8) k/uL Myelocytes # (Manual) (0) k/uL Retic Count (0.5-2.0) % POC Glucose (mg/dL) 146 H 143 H (75-99) mg/dL 08/05/18 08/05/18 08/05/18 Range/Units 08:33 08:33 11:30 RBC 2.05 L (4.30-5.90) m/uL Hgb 7.1 L (13.0-17.5) gm/dL Hct 24.2 L (39.0-53.0) % MCV 117.7 H (80.0-100.0) fL MCH (25.0-35.0) pg MCHC 29.4 L (31.0-37.0) g/dL RDW 18.4 H (11.5-15.5) % Lymphocytes # (Manual) 0.76 L (1.0-4.8) k/uL Myelocytes # (Manual) 0.07 H (0) k/uL Retic Count 11.1 H (0.5-2.0) % POC Glucose (mg/dL) 137 H (75-99) mg/dL 08/05/18 Range/Units 17:04 RBC (4.30-5.90) m/uL Hgb (13.0-17.5) gm/dL Hct (39.0-53.0) % MCV (80.0-100.0) fL MCH (25.0-35.0) pg MCHC (31.0-37.0) g/dL RDW (11.5-15.5) % Lymphocytes # (Manual) (1.0-4.8) k/uL Myelocytes # (Manual) (0) k/uL Retic Count (0.5-2.0) % POC Glucose (mg/dL) 153 H (75-99) mg/dL Microbiology - Last 24 Hours (Table) 08/04/18 04:27 Urine Culture - Final Urine,Voided 08/04/18 07:01 Blood Culture - Preliminary Blood No Growth after 24 hours Chest x-ray: report reviewed Abdominal x-ray: report reviewed CT scan - abdomen: report reviewed CT scan - pelvis: report reviewed Assessment and Plan (1) Anemia Narrative/Plan: The pt has significant macrocytic anemia. The high MCV makes it unlikely that this is due to blood loss, which would cause microcytosis typically. In addition , per Urology, the degree of anemia is not felt to be explained by the amount of hematuria. The Hgb was low a week ago, even prior to the hematuria. - Thus it is likely that there is another etiology for his anemia. A full anemia w/u has been ordered, and results are pending. Monitor Hgb in the meantime, and transfuse if needed to keep Hgb > 7 - If above w/u is unrevealing, a bone marrow will be considered - Current Visit: Yes Status: Acute Code(s): D64.9 - ANEMIA, UNSPECIFIED SNOMED Code(s): 884350419 (2) Hematuria Narrative/Plan: The pt is being evaluted by Urology. CT AP did not show any obvious structural abnormality. Cystoscopy is planned as an outpt Current Visit: Yes Status: Acute Code(s): R31.9 - HEMATURIA, UNSPECIFIED SNOMED Code(s): 07614462
[2018-08-05] MEDS: ATENOLOL 50 MG TAB PO SCH (21:02)
[2018-08-05] MEDS: ATORVASTATIN 20 MG TAB PO SCH (21:02)
[2018-08-05] MEDS: PANTOPRAZOLE 40 MG/10 ML VIAL IVP SCH (21:02)
[2018-08-05] MEDS: CHOLECALCIFEROL 1,000 UNIT TAB PO SCH (21:02)
[2018-08-05 22:07] LABS: Glucose,Whole Blood 226 mg/dL (75-99)
[2018-08-06] MEDS: BUDESONIDE 0.5 MG/2 ML NEBU INHALATION SCH ×2 (07:13→19:20)
[2018-08-06] MEDS: CYANOCOBALAMIN 500 MCG TAB PO SCH (07:44)
[2018-08-06] MEDS: SPIRONOLACTONE 25 MG TAB PO SCH (07:44)
[2018-08-06] MEDS: PANTOPRAZOLE 40 MG/10 ML VIAL IVP SCH (07:44)
[2018-08-06] MEDS: FUROSEMIDE 40 MG TAB PO SCH (07:45)
[2018-08-06] MEDS: LOSARTAN 25 MG TAB PO SCH (07:45)
[2018-08-06] MEDS: INSULIN ASPART 100 UNIT/ML 1 ML 10 ML VIAL SQ SCH ×3 (07:47→17:35)
[2018-08-06 07:52] LABS: Glucose,Whole Blood 133 mg/dL (75-99)
[2018-08-06 08:49] LABS: Anisocytosis Slight; HCT 22.6 % (39.0-53.0); Hypochromasia Marked; MCH 35.1 pg (25.0-35.0); MCHC 30.7 g/dL (31.0-37.0); MCV 114.3 fL (80.0-100.0); Macrocytosis Marked; Mean Platelet Volume 7.6; Platelet Count 189 k/uL (150-450); RBC 1.97 m/uL (4.30-5.90); WBC 4.9 k/uL (3.8-10.6)
[2018-08-06 09:00] LABS: HGB 6.9 gm/dL (13.0-17.5)
[2018-08-06 09:17] LABS: Potassium 4.7 mmol/L (3.5-5.1)
[2018-08-06] MEDS ORDERED: PROPOFOL 10 MG/ML 20 ML VIAL IV ONE (10:10)
[2018-08-06] MEDS ORDERED: LIDOCAINE 1% INJ 10MG/ML (20 ML MDV) ONE (10:10)
[2018-08-06] MEDS ORDERED: SODIUM CHLORIDE 0.9% 500 ML IV ONE (10:13)
[2018-08-06 10:36] LABS: PSA Annual Screen 1.74 ng/mL (0.00-4.00)
[2018-08-06] MEDS: ISOSORBIDE MONONITRATE ER 60 MG TAB.ER.24H PO SCH (11:17)
[2018-08-06 11:23] LABS: Eosinophils # (M) 0.05 k/uL (0-0.7); Lymphocytes # (M) 0.83 k/uL (1.0-4.8); Monocytes # (M) 0.59 k/uL (0-1.0); Neutrophils # (M) 3.43 k/uL (1.3-7.7); Neutrophils % (M) 70 %; Nucleated Red Blood Cells 0 /100 WBC (0-0); Polychromasia Present; Total Cells Counted 100
--- NOTE | 2018-08-06 11:57 | P.PCN ---
Date of Procedure: 08/06/18 Description of Procedure: BRIEF HISTORY: Patient is a 78-year-old, pleasant, male patient with a medical history significant for prior polypectomy on colonoscopy 1 year ago who presented to the hospital with complaints of hematuria. The patient was found to be anemic on presentation with a hemoglobin in the 7's. As mentioned patient has undergone colonoscopic evaluation approximately one year ago. PROCEDURE PERFORMED: Esophagogastroduodenoscopy with biopsy. PREOPERATIVE DIAGNOSIS: Anemia of acute blood loss. ESTIMATED BLOOD LOSS: Minimal. IV sedation per anesthesia. PROCEDURE: After informed consent was obtained, the patient was brought into the endoscopy unit. IV sedation was administered by Anesthesia under continuous monitoring. Initially the Olympus GIF-190 video endoscope was inserted into the mouth. Esophagus intubated without any difficulty. It was gradually advanced into the stomach and duodenum and carefully examined. The bulb and the second part of the duodenum appeared grossly normal with mild scattered erythema suggestive of duodenitis which was biopsied. The scope at this time was withdrawn to the stomach, adequately insufflated with air, and upon careful examination, mucosa of the antrum, body, cardia and the fundus which also appeared grossly normal except for some mild scattered erythema suggestive of gastritis. The scope was then withdrawn into the esophagus. The GE junction was located at 41 cm from the incisors. The esophagus appeared normal. There were no erosions or ulcerations seen and the patient tolerated the procedure well. IMPRESSION: 1. Mild gastritis, biopsied. 2. Mild duodenitis, biopsied. RECOMMENDATIONS: The findings of this examination were discussed with the patient and his . Okay for diet, continue to monitor hemoglobin and hematocrit and transfuse as needed. Continue workup for symptoms of hematuria.
[2018-08-06 12:30] LABS: Glucose,Whole Blood 118 mg/dL (75-99)
[2018-08-06 12:57] LABS: Albumin 3.78 g/dL (3.80-4.90)
--- NOTE | 2018-08-06 13:58 | CDI ---
Last Revision, October 2017 Documentation Clarification Form Date: 08/06/18 From: Urmila Cheema RN Admit Date: 08/04/2018 7:06:00 AM Patient Name: Cameron Dailey Visit Number: [id number] ATTENTION: The Clinical Documentation Specialists (CDI) and [facility] Coding Staff appreciate your assistance in clarifying documentation. Please respond to the clarification below the line at the bottom and electronically sign. The CDI & [facility] Coding staff will review the response and follow-up if needed. Please note: Queries are made part of the Legal Health Record. If you have any questions, please contact the author of this message via ITS. Dr. Jose Khan MD, Documentation of COPD is located in the 08/04 - 08/06. Patient admitted with Hematuria, Anemia and UTI History/Risk Factors: DM, macro cytosis, hypochromasia, diastolic CHF, CABG, anemia, asthma, chest pain/angina, COPD, HTN, hyperlipidemia ex-smoker quit 20 years ago Clinical Indicators: CXR: correlate to exclude pulmonary venous HTN and interstitial edema. There may be small effusion. Vital Signs on admission: T 97.8, P 65, R 18, 103/50, 96% RA Lung and Respiratory Assessment clear Treatment: Nebulizers: Pulmicort, Ventolin, Antibiotics: Ceftriaxone IVPB, In your professional opinion, can you please clarify if the above findings and treatment signify any of the following? Acute on Chronic Obstructive Asthma Acute on chronic bronchitis Chronic obstructive pulmonary disease with acute lower respiratory infection Other condition, please specify Unable to determine MTDD
[2018-08-06 17:10] LABS: Glucose,Whole Blood 128 mg/dL (75-99)
[2018-08-06] MEDS ORDERED: SODIUM FERRIC GLUCONAT-SUCROSE 125 MG in SODIUM CHLORIDE 0.9% 100 ML IVPB ONE (18:00)
--- NOTE | 2018-08-06 19:27 | P.PN ---
Subjective Progress Note Date: 08/06/18 The patient denies any new complaints. He has some mild lower abdominal discomfort which is nonspecific. Urine is now quite clear. He denies any obvious bleeding. No history of fevers/chills/nausea/vomiting Objective - Vital Signs Vital signs: Vital Signs Temp 98.0 F 08/06/18 17:17 Pulse 62 08/06/18 17:17 Resp 12 08/06/18 17:17 BP 107/58 08/06/18 17:17 Pulse Ox 97 08/06/18 14:30 Intake & Output 08/06/18 08/06/18 08/07/18 06:59 18:59 06:59 Intake Total 100 460 Output Total 2 Balance 98 460 Intake: IV 150 Oral 100 Blood Product 310 Rc As-3 Unit 310 [id number] Output: Emesis 2 Other: Voiding Method Urinal # Voids 1 2 # Emeses 2 - Constitutional General appearance: Present: no acute distress - EENT Eyes: Present: EOMI ENT: Present: hearing grossly normal, normal oropharynx - Respiratory Respiratory: bilateral: CTA - Cardiovascular Rhythm: regular Heart sounds: normal: S1, S2 - Gastrointestinal General gastrointestinal: Present: normal bowel sounds, soft - Integumentary Integumentary: Present: normal - Neurologic Neurologic: Present: CNII-XII intact - Musculoskeletal Musculoskeletal: Present: strength equal bilaterally - Psychiatric Psychiatric: Present: A&O x's 3, appropriate affect - Labs CBC & Chem 7: 08/06/18 08:15 08/06/18 08:15 Labs: Abnormal Lab Results - Last 24 Hours (Table) 08/04/18 08/05/18 08/05/18 Range/Units 04:55 08:33 08:33 RBC (4.30-5.90) m/uL Hgb (13.0-17.5) gm/dL Hct (39.0-53.0) % MCV (80.0-100.0) fL MCH (25.0-35.0) pg MCHC (31.0-37.0) g/dL RDW (11.5-15.5) % Lymphocytes # (Manual) (1.0-4.8) k/uL BUN (9-20) mg/dL Creatinine (0.66-1.25) mg/dL Glucose (74-99) mg/dL POC Glucose (mg/dL) (75-99) mg/dL Albumin (PEP) 3.78 L (3.80-4.90) g/dL Gamma Globulins 0.40 L (0.70-1.50) g/dL RBC Folate >2,016 H (280 - 791) ng/mL Crossmatch See Detail 08/05/18 08/06/18 08/06/18 Range/Units 21:55 07:47 08:15 RBC 1.97 L (4.30-5.90) m/uL Hgb 6.9 L* (13.0-17.5) gm/dL Hct 22.6 L (39.0-53.0) % MCV 114.3 H (80.0-100.0) fL MCH 35.1 H (25.0-35.0) pg MCHC 30.7 L (31.0-37.0) g/dL RDW 18.0 H (11.5-15.5) % Lymphocytes # (Manual) 0.83 L (1.0-4.8) k/uL BUN (9-20) mg/dL Creatinine (0.66-1.25) mg/dL Glucose (74-99) mg/dL POC Glucose (mg/dL) 226 H 133 H (75-99) mg/dL Albumin (PEP) (3.80-4.90) g/dL Gamma Globulins (0.70-1.50) g/dL RBC Folate (280 - 791) ng/mL Crossmatch 08/06/18 08/06/18 08/06/18 Range/Units 08:15 12:19 16:52 RBC (4.30-5.90) m/uL Hgb (13.0-17.5) gm/dL Hct (39.0-53.0) % MCV (80.0-100.0) fL MCH (25.0-35.0) pg MCHC (31.0-37.0) g/dL RDW (11.5-15.5) % Lymphocytes # (Manual) (1.0-4.8) k/uL BUN 30 H (9-20) mg/dL Creatinine 1.49 H (0.66-1.25) mg/dL Glucose 111 H (74-99) mg/dL POC Glucose (mg/dL) 118 H 128 H (75-99) mg/dL Albumin (PEP) (3.80-4.90) g/dL Gamma Globulins (0.70-1.50) g/dL RBC Folate (280 - 791) ng/mL Crossmatch Microbiology - Last 24 Hours (Table) 08/04/18 07:01 Blood Culture - Preliminary Blood No Growth after 48 hours Assessment and Plan (1) Anemia Narrative/Plan: Part of the patient's labs have been resulted. Results confirm iron deficiency. The patient was again carefully questioned about his hematuria episode. Based on the history provided by him and his , it appears unlikely that the hematuria would cause anemia to this degree, as opined by urology. In addition his hemoglobin is already 7.8 before the hematuria recurred. The patient therefore needs investigation for other sources of bleeding. He has been seen by gastroenterology, an EGD span. Fully agree with the same. The case was discussed in detail with the admitting service. The patient will receive IV iron. At this time, given his macrocytosis , another etiology of anemia is quite possible. His labs did show significant elevation in reticulocyte count. His antibody screen was negative. Haptoglobin was ordered and is pending to rule out evidence of hemolysis. Hemoglobin was 6.9 today. He will receive 1 unit of PRBC. If he is otherwise stable, he can be discharged from our standpoint, and follow-up in the office in about 2-3 weeks. Depending upon his response to IV iron , and other pending lab results, additional workup such as a bone marrow aspiration biopsy will be scheduled if appropriate Current Visit: Yes Status: Acute Code(s): D64.9 - ANEMIA, UNSPECIFIED SNOMED Code(s): 786717741 (2) Hematuria Narrative/Plan: This has resolved. The patient will have an outpatient cystoscopy with urology. Await those results. Current Visit: Yes Status: Acute Code(s): R31.9 - HEMATURIA, UNSPECIFIED SNOMED Code(s): 75007132
--- NOTE | 2018-08-06 19:30 | PN ---
PROGRESS NOTE DATE OF SERVICE: 08/06/2018 NO CODE STATUS. NEW DATA: Height 5 feet 9 inches, weight 115.666 kg, BSA 2.29 m2, BMI 37.7 kg. ALLERGIES: UNKNOWN. The patient is seen today and evaluated, discussed with the patient and his . Also discussed with Hematology/Oncology, Dr. Knutson, who advised that the drop in hemoglobin was more than expected with anemia. He had iron deficiency anemia as well as hematuria with the second episode with a full stream. However, it cleared on the second day of admission. He was seen by Dr. Becerra with the possibility of hemorrhagic cystitis, but needs further investigation in 1-2 weeks, as he stated in his consultation. The patient was seen by Dr. Infante, the senior linux administrator, and he did upper endoscopy showing gastritis and duodenitis. His conclusion was mild gastritis with biopsy done, duodenitis with biopsy done. He okayed patient to resume his diet. As discussed with Dr. Knutson on the phone, he stated that we are giving him one unit of blood, as his hemoglobin dropped to 6.9, and subsequently he got one unit of iron 125 mg. The patient is able to ambulate and able to eat. His vital signs indicate temperature 98 orally, pulse rate 62 per minute, respiratory rate 12 and blood pressure 107/58. It was low prior to that at 99/57, and we adjusted medication, cut down the doses, and he has been gradually improving to 107/58. Discussed also with his nurse the parameters that we have placed on it. LABORATORY: Today his white count was 4.9 with hemoglobin 6.9, and for that purpose he was transfused one unit packed RBCs. With the macrocytosis and hypochromasia, he has also underlying chronic kidney disease with the BUN of 30, creatinine 1.4 with an estimated glomerular filtration rate 49. His blood sugar has been controlled with insulin only and without any problem. His blood culture that was done on admission was no growth and also urine void final was also negative, no growth, with no evidence of infection. PHYSICAL EXAMINATION: Today patient is conscious, alert, oriented, and he is able to eat. No neurological finding. His oropharynx is negative. Neck was supple. Chest was clear to auscultation and percussion. Heart was regular sinus rhythm. ABDOMEN: Soft. Positive bowel sounds and no tenderness in 4 quadrants. EXTREMITIES: Minimal edema. We consulted Cardiology; however, we do not have a response on that. We are going to obtain CBC with differential tomorrow after he had today the iron supplementation one unit. MMODL / IJN: [id number] /
[2018-08-06] MEDS ORDERED: ATENOLOL 25 MG TAB PO SCH (21:00)
[2018-08-06] MEDS: ATORVASTATIN 20 MG TAB PO SCH (21:05)
[2018-08-06] MEDS: CHOLECALCIFEROL 1,000 UNIT TAB PO SCH (21:05)
[2018-08-06 21:34] LABS: Glucose,Whole Blood 132 mg/dL (75-99)
[2018-08-06 23:35] VITALS: RESP 20
[2018-08-07 06:05] VITALS: BP 124/69; PULSE 60; TEMP 97.9
[2018-08-07] MEDS: BUDESONIDE 0.5 MG/2 ML NEBU INHALATION SCH (06:52)
[2018-08-07 07:37] LABS: Glucose,Whole Blood 130 mg/dL (75-99)
--- NOTE | 2018-08-07 07:47 | XR ---
EXAMINATION TYPE: XR chest 2V DATE OF EXAM: 08/07/2018 COMPARISON: 08/04/2018 INDICATION: Chronic pulmonary fullness, short of breath TECHNIQUE: Frontal and lateral views of the chest are obtained. FINDINGS: The heart size is enlarged. The pulmonary vasculature is prominent. Some minimal infiltrates are along the left heart border and at the left cardiac apex. There is blunt ing left costophrenic angle and right costophrenic angle. Small pleural effusions may be present.. IMPRESSION: 1. Clinical correlation recommended for congestive heart failure. 2. Small pleural effusions bilaterally. 3. Mild infiltrate can be atypical pulmonary edema or atelectasis within the lingula. Clinical consid eration for pneumonia is recommended.
[2018-08-07] MEDS: INSULIN ASPART 100 UNIT/ML 1 ML 10 ML VIAL SQ SCH ×2 (08:07→12:37)
[2018-08-07] MEDS: CYANOCOBALAMIN 500 MCG TAB PO SCH (08:09)
[2018-08-07] MEDS: SPIRONOLACTONE 25 MG TAB PO SCH (08:09)
[2018-08-07] MEDS: FUROSEMIDE 40 MG TAB PO SCH (08:09)
[2018-08-07] MEDS: CHOLECALCIFEROL 1,000 UNIT TAB PO SCH (08:09)
[2018-08-07] MEDS: LOSARTAN 25 MG TAB PO SCH (08:10)
[2018-08-07] MEDS: PANTOPRAZOLE 40 MG/10 ML VIAL IVP SCH (08:10)
[2018-08-07 08:47] LABS: Calcium 9.2 mg/dL (8.4-10.2); Potassium 4.8 mmol/L (3.5-5.1)
[2018-08-07] MEDS ORDERED: ISOSORBIDE MONONITRATE ER 30 MG TAB.ER.24H PO SCH (09:00)
[2018-08-07 09:04] LABS: Anisocytosis Slight; HCT 25.6 % (39.0-53.0); HGB 8.1 gm/dL (13.0-17.5); Hypochromasia Marked; MCH 35.3 pg (25.0-35.0); MCHC 31.6 g/dL (31.0-37.0); MCV 111.6 fL (80.0-100.0); Macrocytosis Marked; Mean Platelet Volume 7.5; Platelet Count 178 k/uL (150-450); Poikilocytosis Slight; RDW 19.4 % (11.5-15.5); WBC 6.2 k/uL (3.8-10.6)
--- NOTE | 2018-08-07 09:11 | CDI ---
Last Revision, October 2017 Documentation Clarification Form Date: 08/06/2018 1:58:00 PM From: Urmila Cheema Admit Date: 08/04/2018 7:06:00 AM Patient Name: Cameorn Dailey Visit Number: [id number] ATTENTION: The Clinical Documentation Specialists (CDI) and [facility] Coding Staff appreciate your assistance in clarifying documentation. Please respond to the clarification below the line at the bottom and electronically sign. The CDI & [facility] Coding staff will review the response and follow-up if needed. Please note: Queries are made part of the Legal Health Record. If you have any questions, please contact the author of this message via ITS. Jose Perales MD, Documentation of COPD is located in the 08/04 - 08/06. Patient admitted with Hematuria, Anemia and UTI History/Risk Factors: DM, macro cytosis, hypochromasia, diastolic CHF, CABG, anemia, asthma, chest pain/angina, COPD, HTN, hyperlipidemia ex-smoker quit 20 years ago Clinical Indicators: CXR: correlate to exclude pulmonary venous HTN and interstitial edema. There may be small effusion. Vital Signs on admission: T 97.8, P 65, R 18, 103/50, 96% RA Lung and Respiratory Assessment clear Treatment: Nebulizers: Pulmicort, Ventolin Antibiotics: Ceftriaxone IVPB In your professional opinion, can you please clarify if the above findings and treatment signify any of the following? Acute on Chronic Obstructive Asthma Acute on chronic bronchitis Chronic obstructive pulmonary disease with acute lower respiratory infection Other condition, please specify Unable to determine MTDD
--- NOTE | 2018-08-07 10:31 | P.PN ---
Subjective Progress Note Date: 08/07/18 Principal diagnosis: anemia 78-year-old male admitted with acute hematuria acute blood loss anemia status post EGD yesterday with findings of mild gastritis duodenitis biopsies pending. No evidence of peptic ulcer disease or bleeding sources. No further hematuria. Denies hematemesis hematochezia melena. Receiving intravenous iron. Transfuse 1 unit of blood yesterday. Hemoglobin 8.1. FOBT positive. Objective - Vital Signs Vital signs: Vital Signs Temp 97.9 F 08/07/18 06:05 Pulse 60 08/07/18 06:05 Resp 20 08/07/18 06:05 BP 124/69 08/07/18 06:05 Pulse Ox 95 08/07/18 06:05 Intake & Output 08/06/18 08/07/18 08/07/18 18:59 06:59 18:59 Intake Total 460 700 Balance 460 700 Intake: IV 150 Oral 700 Blood Product 310 Rc As-3 Unit 310 [id number] Other: Voiding Method Urinal # Voids 2 1 - Exam General appearance: The patient is alert, oriented, in no acute distress. HET: Head is normocephalic and atraumatic. Pupils are equal and reactive. Oropharynx is clear without lesions. Neck: Supple without lymphadenopathy. Trachea midline. Heart: S1 S2. Regular rate and rhythm. Lungs: No crackles or wheezes are heard. Abdomen: Soft, nontender, nondistended with bowel sounds. No peritoneal signs. No palpable organomegaly or masses. Extremities: Normal skin color and turgor. No cyanosis, rash, ulceration, clubbing, or edema. Radial and pedal pulses are 2/4 bilaterally. Neurological: No focal deficits. Strength and sensation are grossly intact. - Labs CBC & Chem 7: 08/07/18 08:02 08/07/18 08:02 Labs: Abnormal Lab Results - Last 24 Hours (Table) 08/04/18 08/05/18 08/06/18 Range/Units 04:55 08:33 08:15 RBC (4.30-5.90) m/uL Hgb (13.0-17.5) gm/dL Hct (39.0-53.0) % MCV (80.0-100.0) fL MCH (25.0-35.0) pg RDW (11.5-15.5) % Lymphocytes # (Manual) 0.83 L (1.0-4.8) k/uL BUN (9-20) mg/dL Creatinine (0.66-1.25) mg/dL Glucose (74-99) mg/dL POC Glucose (mg/dL) (75-99) mg/dL Albumin (PEP) 3.78 L (3.80-4.90) g/dL Gamma Globulins 0.40 L (0.70-1.50) g/dL Crossmatch See Detail 08/06/18 08/06/18 08/06/18 Range/Units 12:19 16:52 21:29 RBC (4.30-5.90) m/uL Hgb (13.0-17.5) gm/dL Hct (39.0-53.0) % MCV (80.0-100.0) fL MCH (25.0-35.0) pg RDW (11.5-15.5) % Lymphocytes # (Manual) (1.0-4.8) k/uL BUN (9-20) mg/dL Creatinine (0.66-1.25) mg/dL Glucose (74-99) mg/dL POC Glucose (mg/dL) 118 H 128 H 132 H (75-99) mg/dL Albumin (PEP) (3.80-4.90) g/dL Gamma Globulins (0.70-1.50) g/dL Crossmatch 08/07/18 08/07/18 08/07/18 Range/Units 07:07 08:02 08:02 RBC 2.30 L (4.30-5.90) m/uL Hgb 8.1 L (13.0-17.5) gm/dL Hct 25.6 L (39.0-53.0) % MCV 111.6 H (80.0-100.0) fL MCH 35.3 H (25.0-35.0) pg RDW 19.4 H (11.5-15.5) % Lymphocytes # (Manual) (1.0-4.8) k/uL BUN 31 H (9-20) mg/dL Creatinine 1.56 H (0.66-1.25) mg/dL Glucose 140 H (74-99) mg/dL POC Glucose (mg/dL) 130 H (75-99) mg/dL Albumin (PEP) (3.80-4.90) g/dL Gamma Globulins (0.70-1.50) g/dL Crossmatch Microbiology - Last 24 Hours (Table) 08/04/18 07:01 Blood Culture - Preliminary Blood No Growth after 72 hours Assessment and Plan (1) Anemia Narrative/Plan: 78-year-old gentleman presents with acute hematuria second episode since June with symptomatic macrocytic anemia acute blood loss. Denies gross hematemesis hematochezia or melena. FOBT positive. Colonoscopy 1 year ago reported as a few polyps removed. EGD evaluation initially no evidence of peptic ulcer disease findings of mild gastritis duodenitis. Biopsies pending. Small bowel blood loss remains within the differential however presently without hematuria or overt GI bleeding. Current Visit: Yes Status: Acute Code(s): D64.9 - ANEMIA, UNSPECIFIED SNOMED Code(s): 320020440 (2) Hematuria Current Visit: Yes Status: Acute Code(s): R31.9 - HEMATURIA, UNSPECIFIED SNOMED Code(s): 12465402 Plan: 1. Discharge per medicine and consultants. No further workup from a GI standpoint. CBC monitoring outpatient setting. Continue with iron supplementation. Return office in 2-3 weeks reevaluation. Follow-up with urology is advised. Diabetes tolerated. Assessment and plan a care discussed with Dr. Infante
[2018-08-07 11:34] LABS: Band Neutrophils % 1 %; Eosinophils # (M) 0.25 k/uL (0-0.7); Lymphocytes # (M) 0.37 k/uL (1.0-4.8); Monocytes # (M) 0.31 k/uL (0-1.0); Neutrophils % (M) 84 %; Nucleated Red Blood Cells 0 /100 WBC (0-0); Total Cells Counted 100
[2018-08-07 11:39] LABS: Polychromasia Present
[2018-08-07 12:09] LABS: Glucose,Whole Blood 139 mg/dL (75-99)
--- NOTE | 2018-08-07 14:35 | P.CRDCN ---
History of Present Illness History of present illness: Mr. Dailey is a pleasant 78-year-old male past medical history significant for coronary artery disease s/p bypass grafting 1991 then subsequent stenting of his bypass grafts in 2005 and 2008. Most recent caetheterization in 2013 revealed a patent YUAN to LAD, patent SVG to circumflex , occluded SVG to RCA and a patent stent in the SVG to OM. He also has ischemic cardiomyopathy, chronic systolic heart failure, hypertension, dyslipidemia, diabetes mellitus, COPD and former nicotine dependence. He follows with Dr. BAHMAN Olsen in the office. We have been asked to see him in consultation for recommendations regarding his dual antiplatelet therapy in light of recent hematuria. He presented to the hospital 08/04 after waking up to use the restroom and noticing significant amount of bright red blood as well as blood clots in his urine. Upon arrival hemoglobin was 7.2 however he continued to exhibit hematuria and hemoglobin dropped as low as 6.9. He received blood transfusion of 1 unit of packed red blood cells. He underwent EGD per Dr. Infante which indicated gastritis and duodenitis with no active bleeding noted. He states he has had no further hematuria since the initial episode on admission. He has been seen in consultation by Dr. Bceerra and he has recommended he follow up in the office in 2 weeks for cystoscopy. He c/o shortness of breath and dizziness over the last couple days with no chest pain or palpitations. Chest xray obtained today indicates small pleural effusions and blunting of costophrenic angles indicative of possible heart failure. Current home medications include atenolol 50 mg daily, atorvastatin 20 mg daily , lasix 40 mg daily, imdur 60 mg daily, losartan 50 mg daily and aldactone 50 mg daily. These medications have been adjusted per PCP due to hypotension. Review of Systems At the time of my exam: CONSTITUTIONAL: Denies fever. Denies chills. EYES: Denies blurred vision. Denies vision changes. Denies eye pain. EARS, NOSE, MOUTH & THROAT: Denies headache. Denies sore throat. Denies ear pain. CARDIOVASCULAR: Denies chest pain. Denies shortness of breath. Denies orthopnea. Denies PND. Denies palpitations. RESPIRATORY: Denies cough. GASTROINTESTINAL: Denies abdominal pain. Denies diarrhea. Denies constipation. Denies nausea. Denies vomiting. MUSCULOSKELETAL: Denies myalgias. INTEGUMENTARY: Denies pruitis. Denies rash. NEUROLOGIC: Denies numbness. Denies tingling. Denies weakness. PSYCHIATRIC: Denies anxiety. Denies depression. ENDOCRINE: Denies fatigue. Denies weight change. Denies polydipsia. Denies polyurina. GENITOURINARY: Denies burning, hematuria or urgency with micturation. HEMATOLOGIC: Denies history of anemia. Denies bleeding. 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 Taylor, asbestos exposure, JAMSHID with CPAP, vertigo, cervical pain, bilateral arm and hand numbness, NIDDM type II, neuropathy bilateral feet, occasional bilateral lower extremity edema, pt states he has bilateral calf soreness/pain with activity or touching. Last Myocardial Infarction Date:: 1991 History of Any Multi-Drug Resistant Organisms: None Reported Past Surgical History: Adenoidectomy, Coronary Bypass/CABG, Heart Catheterization, Heart Catheterization With Stent, Hernia Repair, Orthopedic Surgery, Tonsillectomy Additional Past Surgical History / Comment(s): 1991 CABG-3 vessel, 2005 and 2008 PCI/stents, incisional ventral hernia repair, sinus surgery, bilateral blepharoplasties, cervical disc 4 and 5 surgery, bilateral rotator cuff repairs , bilateral carpal tunnel releases/wrist, L ankle fracture with surgery-pt states no hardware, colonoscopies-last done 09/08/17, pain clinic procedures with recent cervical injections. Past Anesthesia/Blood Transfusion Reactions: No Reported Reaction Additional Past Anesthesia/Blood Transfusion Reaction / Comment(s): Pt has never received blood. Date of Last Stent Placement:: 2008 Smoking Status: Former smoker - Past Family History Father Family Medical History: Myocardial Infarction (MT) Additional Family Medical History / Comment(s): Father of a MT at the age of 63 yrs. Mother Family Medical History: Myocardial Infarction (MT) Additional Family Medical History / Comment(s): Mother of a MT at the age of 67yrs. Brother(s) Additional Family Medical History / Comment(s): Pt has 20 siblings. His twin brother from heart condition. He also had anemia. Medications and Allergies Home Medications Medication Instructions Recorded Confirmed Type Aspirin 81 mg PO HS 01/25/15 08/04/18 History Atorvastatin [Lipitor] 20 mg PO HS 01/25/15 08/04/18 History Furosemide [Lasix] 40 mg PO QAM 01/25/15 08/04/18 History Nitroglycerin Sl Tabs [Nitrostat] 0.4 mg SL Q5M PRN 01/25/15 08/04/18 History metFORMIN HCL [Glucophage] 1,000 mg PO HS 01/25/15 08/04/18 History Albuterol Inhaler [Ventolin Hfa 1 - 2 puff INHALATION RT-Q6H PRN 08/04/18 History Inhaler] Budesonide [Pulmicort] 0.5 mg INHALATION RT-BID 08/04/18 08/04/18 History Cholecalciferol (Vitamin D3) 2,000 unit PO HS 08/04/18 08/04/18 History [Vitamin D3] Cyanocobalamin (Vitamin B-12) 1,000 mcg PO DAILY 08/04/18 08/04/18 History [Vitamin B-12] Ferrous Sulfate [Iron (65 MG 325 mg PO DAILY 08/04/18 08/04/18 History Elemental)] Atenolol [Tenormin] 25 mg PO HS #30 tab 08/07/18 Rx Insulin Aspart [NovoLOG 2 - 10 unit SQ AC-TID #10 vial 08/07/18 Rx (formulary)] Isosorbide Mononitrate ER [Imdur] 30 mg PO QAM #30 tab.er.24h 08/07/18 Rx Losartan [Cozaar] 25 mg PO QAM #30 tab 08/07/18 Rx Spironolactone [Aldactone] 12.5 mg PO QAM #30 tab 08/07/18 Rx Allergies Allergy/AdvReac Type Severity Reaction Status Date / Time No Known Allergies Allergy Verified 08/04/18 07:15 Physical Exam Vitals: Vital Signs Temp Pulse Pulse Resp BP BP BP 08/07/18 06:05 97.9 F 60 20 124/69 08/06/18 23:00 97.8 F 64 20 137/65 08/06/18 20:33 64 102/47 08/06/18 17:17 98.0 F 62 12 107/58 08/06/18 15:00 98.0 F 62 12 102/56 08/06/18 14:30 98.1 F 62 62 20 100/50 99/57 08/06/18 14:20 98 F 76 12 99/57 Pulse Ox 08/07/18 06:05 95 08/06/18 23:00 97 08/06/18 20:33 08/06/18 17:17 08/06/18 15:00 08/06/18 14:30 97 08/06/18 14:20 Intake and Output 08/06/18 08/07/18 08/07/18 22:59 06:59 14:59 Intake Total 810 200 Balance 810 200 Intake: Oral 500 200 Blood Product 310 Rc As-3 Unit 310 [id number] Other: Voiding Method Urinal # Voids 1 1 Blood pressure 124/69 heart rate 68 afebrile maintaining oxygen saturation on room air GENERAL: This is a 78-year-old male in no apparent distress at the time of my examination. Obese. HEENT: Head is atraumatic, normocephalic. Pupils are equal, round. Sclerae anicteric. Conjunctivae are clear. Mucous membranes of the mouth are moist. Neck is supple. There is no jugular venous distention. No carotid bruit is heard. LUNGS: Clear to auscultation no wheezes, rales or rhonchi. No chest wall tenderness is noted on palpation or with deep breathing. Diminished bilaterally. HEART: Regular rate and rhythm without murmurs, rubs or gallops. S1 and S2 heard. ABDOMEN: Soft, nontender. Bowel sounds are heard. No organomegaly noted. EXTREMITIES: Trace bilateral lower extremity peripheral edema and no calf tenderness noted. VASCULAR: Radial and dorsalis pedis pulses palpated, no evidence of clubbing. NEUROLOGIC: Patient is awake, alert and oriented x3. Results 08/07/18 08:02 08/07/18 08:02 CBC 08/07/18 Range/Units 08:02 WBC 6.2 (3.8-10.6) k/uL RBC 2.30 L (4.30-5.90) m/uL Hgb 8.1 L (13.0-17.5) gm/dL Hct 25.6 L (39.0-53.0) % Plt Count 178 (150-450) k/uL Comprehensive Metabolic Panel 08/07/18 Range/Units 08:02 Sodium 139 (137-145) mmol/L Potassium 4.8 (3.5-5.1) mmol/L Chloride 106 (98-107) mmol/L Carbon Dioxide 23 (22-30) mmol/L BUN 31 H (9-20) mg/dL Creatinine 1.56 H (0.66-1.25) mg/dL Glucose 140 H (74-99) mg/dL Calcium 9.2 (8.4-10.2) mg/dL Current Medications Generic Name Dose Route Start Last Admin Trade Name Freq PRN Reason Stop Dose Admin Albuterol Sulfate 2.5 mg 08/04/18 14:40 08/05/18 18:59 Ventolin Nebulized INHALATION 2.5 mg RT-Q6H PRN Administration Shortness Of Breath Atenolol 25 mg 08/06/18 21:00 08/06/18 21:05 Tenormin PO 25 mg HS KAYLEE Administration Atorvastatin Calcium 20 mg 08/04/18 21:00 08/06/18 21:05 Lipitor PO 20 mg HS KAYLEE Administration Budesonide 0.5 mg 08/04/18 20:00 08/07/18 06:52 Pulmicort INHALATION Not Given RT-BID KAYLEE Cholecalciferol 2,000 unit 08/04/18 21:00 08/07/18 08:09 Vitamin D3 PO 2,000 unit HS KAYLEE Administration Cyanocobalamin 1,000 mcg 08/05/18 12:00 08/07/18 08:09 Vitamin B-12 PO 1,000 mcg 1200 KAYLEE Administration Furosemide 40 mg 08/05/18 09:00 08/07/18 08:09 Lasix PO 40 mg QAM KAYLEE Administration Influenza Virus Vaccine Quadrival 60 mcg 08/10/18 09:00 Flulaval Vaccine [id number] IM 08/10/18 09:01 .ONCE ONE Insulin Aspart 2 - 10 unit 08/04/18 17:30 08/07/18 12:37 Novolog SQ Not Given AC-TID [facility] Protocol Isosorbide Mononitrate 30 mg 08/07/18 09:00 08/07/18 08:09 Imdur PO 30 mg QAM KAYLEE Administration Losartan Potassium 25 mg 08/05/18 09:00 08/07/18 08:10 Cozaar PO 25 mg QAM KAYLEE Administration Naloxone HCl 0.2 mg 08/04/18 07:04 Narcan IV Q2M PRN Opioid Reversal Nitroglycerin 0.4 mg 08/04/18 14:40 Nitrostat SUBLINGUAL Q5M PRN Chest Pain Ondansetron HCl 4 mg 08/05/18 19:59 08/05/18 20:15 Zofran IVP 4 mg Q6HR PRN Administration Nausea And Vomiting Pantoprazole Sodium 40 mg 08/05/18 20:00 08/07/18 08:10 Protonix IVP 40 mg DAILY KAYLEE Administration Spironolactone 12.5 mg 08/05/18 09:00 08/07/18 08:09 Aldactone PO 12.5 mg QAM KAYLEE Administration Intake and Output 08/06/18 08/07/18 08/07/18 22:59 06:59 14:59 Intake Total 810 200 Balance 810 200 Intake: Oral 500 200 Blood Product 310 Rc As-3 Unit 310 [id number] Other: Voiding Method Urinal # Voids 1 1 08/07/18 08:02 08/07/18 08:02 Assessment and Plan Assessment: ASSESSMENT Hematuria Acute blood loss anemia History of coronary artery disease s/p bypass grafting and subsequent stenting on dual antiplatelet therapy Ischemic cardiomyopathy Chronic systolic heart failure, EF 40%. Clinically he is not in acute exacerbation of heart failure. Hypertension Dyslipidemia COPD Diabetes mellitus Obstructive sleep apnea PLAN Plavix can be discontinued and resume aspirin 81 mg daily. Cardiac medications were decreased by primary team for hypotension in presence of anemia. Recommend to go home on previous home doses. Follow up with Dr. BAHMAN Olsen in 1-2 weeks. Thank you kindly for this consultation. Nurse Practitioner note has been reviewed, I agree with a documented findings and plan of care. Patient was seen and examined.
--- NOTE | 2018-08-07 14:36 | DS ---
DISCHARGE SUMMARY DATE OF SERVICE: 08/07/2018 He is a 78-year-old white male, , date is 1940. He is in room 403, bed 2, and he is that NO CODE. NEW DATA: He is 5 foot 9 inches, weight 115.666 kg, BSA 2.29 m2, BMI 37.7 kg. His allergy is unknown. CURRENT DIAGNOSES: 1. Acute anemia secondary blood loss. 2. Hematuria. this the second episode with a colon of blood noticed by the patient and also in the hospital. 3. He has status post EGD with the gastritis and duodenitis. 4. Underlying hypochromasia and macrocytosis with a question of presence of myelodysplastic syndrome will be considered as well as we had the anemia and blood loss. 5. Diabetes mellitus. 6. Underlying history of Plavix which induced bleeding, has been withheld with consultation with Cardiology, Dr. Morejon. 7. Hypotension and medication has been adjusted. 8. Chronic obstructive pulmonary disease and history of asthma, has been silent with no problem with the association of COPD with no current abnormalities. 9. Possibility of hemorrhagic cystitis. 10.Chronic kidney disease stage III. Patient presented to the emergency room with severe hemoglobin and hematuria and blood loss as a second episode as well as the urinary tract. We found that there is no evidence of infection. However, patient has already been treated with Rocephin and as patient admitted to the hospital consultation with Urology, Dr. Becerra, and plan for 1-2 weeks after discharge to have cystoscopy with the possibility of hemorrhagic cystitis. He has subsequently with positive stool for Hemoccult. Gastroenterology did see him, Dr. Infante and he did upper endoscopy and showed the underlying gastritis and duodenitis and subsequently patient his dropped hemoglobin to 6.9 and transfused 1 unit of packed RBCs as well as consultation with Hematology/Oncology, who will be following him also as outpatient and for the possibility of myelodysplastic syndrome and further need for bone marrow biopsy or further investigation and he ordered for him 1 unit of iron supplementation IV infusion and the patient did well with that and his hemoglobin was currently 8.1. LABORATORY: White count 6.2, hemoglobin 8.1, hematocrit 25, his MCV 111.6. His platelet count 178, normal and his sodium and potassium and chloride all within normal limit. His BUN 31 and creatinine 1.56 with the underlying glomerular filtration rate 42 and his blood sugar was stable 139 to 130-132. He is currently on insulin to scale and but he is also on metformin. We discontinued because of his edema and history of possibility of cardiac abnormalities and we consulted the polymerization oven operator and who agreed for discontinuation of the Plavix, only aspirin until we see him and he has been seen before with Dr. Tono Olsen and supposedly patient will be followed with Dr. Tono Olsen. As the patient is stable general condition and ambulatory, he will be discharged home today. On his discharge, his temperature 97.9, pulse is 60, respiratory rate 20, blood pressure 124/69 with a significant improvement and he was in the 102 and less than 99 systolic. Patient is feeling fine, able to go to the bathroom by himself and he has no dizziness and his chest is clear on auscultation and percussion and the heart was compensated clinically. He has still some edema of the lower extremities and was are still continuing his Lasix. His medication on the discharge, he is on inhalation therapy to continue atenolol, atorvastatin, budesonide, inhalation, if needed that is p.r.n. vitamin D3, vitamin B12, and Lasix, which is 40 mg in the morning. He had a flu vaccine as well and the insulin scale NovoLog as well. He is on losartan has been decreased to 25 mg and isosorbide mononitrate to 30 mg and he is nitroglycerin sublingual with history of angina. He is also with the gastritis and duodenitis. Pantoprazole 40 mg was given once a day a.c. breakfast or Prilosec is a.c. breakfast. Spirolactone decreased also to 20 mg subsequently 12.2 g p.o. daily. He has received ferric sodium gluconate 125 mg that is IV piggyback in 1 transfusion only. Patient will be discharged in stable general condition and follow up with Dr. Bliss, the attending, and Dr. Knutson, the Hematology Oncology as well as Dr. Salvador Becerra, the urologist and if he needs any questions, he can contact my office as well. MMODL / IJN: [id number] /
[2018-08-07 19:34] LABS: Hemoglobin A1C 4.4 % (4.0-6.0)
[2018-08-10 06:38] LABS: Methylmalonic Acid 0.27 umol/L (<0.40)
[2018-08-10] MEDS ORDERED: INFLUENZA VACCINE (6 MOS+) 60 MCG/0.5 ML SYRINGE IM ONE (09:00)
== END 2018-08-07 15:06 | disposition home or self-care (01) | DRG 812 ==
LOC: EC 04:04 → 4MS4W 07:06
PROVIDERS: ADMIT Internal Medicine; ATTEND Internal Medicine
PROC: 0DB98ZX Excision of Duodenum, Via Natural or Artificial Opening Endoscopic, Diagnostic (ICD-10-PCS; 2018-08-06)
PROC: 0DB78ZX Excision of Stomach, Pylorus, Via Natural or Artificial Opening Endoscopic, Diagnostic (ICD-10-PCS; 2018-08-06)
PROC: 30233N1 Transfusion of Nonautologous Red Blood Cells into Peripheral Vein, Percutaneous Approach (ICD-10-PCS; principal; 2018-08-06 10:25)
DX: D62 Acute posthemorrhagic anemia (principal); I13.0 Hypertensive heart and chronic kidney disease with heart failure and stage 1 through stage 4 chronic kidney disease, or unspecified chronic kidney disease; I50.42 Chronic combined systolic (congestive) and diastolic (congestive) heart failure; J98.11 Atelectasis; N30.91 Cystitis, unspecified with hematuria; E11.22 Type 2 diabetes mellitus with diabetic chronic kidney disease; I08.1 Rheumatic disorders of both mitral and tricuspid valves; I95.9 Hypotension, unspecified; J44.9 Chronic obstructive pulmonary disease, unspecified; E11.40 Type 2 diabetes mellitus with diabetic neuropathy, unspecified; I25.5 Ischemic cardiomyopathy; N18.3 Chronic kidney disease, stage 3 (moderate); D75.89 Other specified diseases of blood and blood-forming organs; I69.398 Other sequelae of cerebral infarction; Z66 Do not resuscitate; D46.9 Myelodysplastic syndrome, unspecified; H53.9 Unspecified visual disturbance; R40.2142 Coma scale, eyes open, spontaneous, at arrival to emergency department; R40.2362 Coma scale, best motor response, obeys commands, at arrival to emergency department; R40.2252 Coma scale, best verbal response, oriented, at arrival to emergency department; K29.70 Gastritis, unspecified, without bleeding; K29.80 Duodenitis without bleeding; E61.1 Iron deficiency; E78.5 Hyperlipidemia, unspecified; I25.10 Atherosclerotic heart disease of native coronary artery without angina pectoris; G47.33 Obstructive sleep apnea (adult) (pediatric); K57.30 Diverticulosis of large intestine without perforation or abscess without bleeding; I25.2 Old myocardial infarction; M54.2 Cervicalgia; I87.8 Other specified disorders of veins; E66.9 Obesity, unspecified; Z68.37 Body mass index [BMI] 37.0-37.9, adult; Z79.82 Long term (current) use of aspirin; Z79.84 Long term (current) use of oral hypoglycemic drugs; Z79.02 Long term (current) use of antithrombotics/antiplatelets; Z79.51 Long term (current) use of inhaled steroids; Z79.899 Other long term (current) drug therapy; Z95.5 Presence of coronary angioplasty implant and graft; Z95.1 Presence of aortocoronary bypass graft; Z87.891 Personal history of nicotine dependence; Z87.01 Personal history of pneumonia (recurrent); Z86.010 Personal history of colon polyps; Z87.81 Personal history of (healed) traumatic fracture; Z77.090 Contact with and (suspected) exposure to asbestos; Z82.49 Family history of ischemic heart disease and other diseases of the circulatory system
CPT/HCPCS: 36415; 43239; 71046; 74018; 74177; 80048; 80053; 81001; 82272; 82607; 82728; 82747; 83010; 83036; 83540; 83550; 83880; 83883; 83921; 84165; 84484; 85025; 85045; 85610; 85730; 86334; 86850; 86900; 86901; 86920; 87040; 87086; 88305; 94640; 96365; 99285